=== PATIENT | female | born 1955 | race Caucasian/White ===

== ENCOUNTER 2023-06-07 20:28 | Inpatient (IN) | payer OTHER, SELFPAY ==
[2023-06-07] VITALS (14 sets, daily range): BP systolic 121–211; BP diastolic 106–136; PULSE 99; BMI 24.7
[2023-06-07 19:02] LABS: % Basophils 0.2 % (0-2); % Eosinophils 0.2 % (0-6); % Immature Granulocytes 1.1 % (0-0.5); % Monocytes 8.9 % (1.7-9.3); % Neutrophils 72.6 % (42.2-75.2); Absolute Immature Granulocytes 0.2 10^3/uL (0-0.05); Absolute Lymphocytes 2.7 10^3/uL (1.2-3.4); Absolute Monocytes 1.4 10^3/uL (0.1-0.6); Absolute Neutrophils 11.7 10^3/uL (1.4-6.5); Hemoglobin 13.2 g/dL (12.0-16.0); Mean Corp Hgb Conc. 33.8 g/dL (33.0-37.0); Mean Corpuscular Volume 88.6 fL (81.0-99.0); Nucleated Red Blood Cells % 0 %; Platelet Count 423 10^3/uL (130-400)
--- NOTE | 2023-06-07 19:24 | ED.GENMED ---
History of Present Illness
General
Chief Complaint: Chest Pain
Time Seen by Provider: 06/07/23 19:24
Travel History
Have you had any contact with someone who has COVID-19?: No
Do you have any symptoms of coronavirus? Fever > 100 degrees, chills, cough, shortness of breath, sore throat, loss of taste or smell, muscle aches, or headache?: No
History of Present Illness
History of Present Illness:
HPI: Patient presents with chest discomfort described as pressure on the left side of her chest ongoing for the past 15 hours. This feels unlike prior episodes of pancreatitis. She could sense her heart rate was elevated for the past 4 hours as
well. She states she has had an ablation for A-fib in the past.
EXAM:
GENERAL: Well appearing in mild distress
HEENT: Moist oral mucosa
CARDIOVASCULAR: No murmurs, tachycardic heart rate with regular rhythm, No chest wall tenderness
PULMONARY: No respiratory distress, breath sounds are slightly decreased
ABDOMEN: Soft with no peritoneal signs, no tenderness
NEUROLOGIC: Excellent strength all extremities, no coordination deficits
PSYCHIATRIC: Appropriate mental status, normal insight and judgement
EXTREMITIES: Nontender, no edema, moves all extremities equally
SKIN: No rash, no lesions
ED COURSE:
7:30 PM: I initially evaluated
NUMBER AND COMPLEXITY OF PROBLEMS ADDRESSED AT THE ENCOUNTER
� Chronic conditions affecting care: Paroxysmal A-fib on Eliquis, high blood pressure, hyperlipidemia, right bundle branch block, chronic diastolic heart failure has had hyponatremia, CKD, chronic pain syndrome with opioid
dependence as of September 2022, chronic pancreatitis
� Acute Exacerbation and/or Progression of Chronic Illness: This is an acute problem
� Differential Diagnosis includes: ACS, pancreatitis unlikely, chest wall pain
AMOUNT AND/OR COMPLEXITY OF DATA TO BE REVIEWED AND ANALYZED
� I performed an independent evaluation of and my interpretation is:
EKG: Sinus 130, right bundle branch block and it does appear to be more ST depression in V3 compared to prior, first-degree AV block
CT:
X-rays: Chest x-ray shows no definite acute abnormality
Laboratory Studies: White count 16, hemoglobin 13.2, troponin 0.083 which is new in comparison to 10/03/2022
Other:
� Review of other/old records: The patient was here with epigastric discomfort in September 2022 and ruled out for TX at that time
� Clinical information was obtained by an independent historian: I spoke to at bedside
� Prescriptions/Medications Considered but not given:
� Further testing considered but not performed:
RISK OF COMPLICATIONS AND/OR MORBIDITY OR MORTALITY OF PATIENT MANAGEMENT
� Social determinants of health affecting care: Lives at home
� Discussion with other providers: Hospitalist for admission; cardiology for recommendations (Dr. Echols who agrees with switching to heparin, nitro, rate reduction, admission)
� Escalation of care including admission/observation vs risk of discharge considered: The patient initially had heart rates in the 130s with suggestion of sinus but also may have been A-fib/flutter. She is already anticoagulated
and we decided to switch to heparin as she did have an elevated troponin. Her chest pressure has improved with nitroglycerin and this did help her blood pressure as well. She was given Lopressor.
Past History
Past History
ED Past Medical History: Arrthythmia (RBBB), COPD, HTN, Hypercholesterolemia, Hypothyroidism, Psychiatric (MDD), Other (Chronic kidney disease, anemia, Takotsubo's cardiomyopathy, chronic pancreatitis, chronic back pain) and Other (Vit D defic)
ED Past Surgical History: Appendectomy, Cardiac (SVT Ablation), Gynecological (Hysterectomy) and Other (lumbar surgery L5-S2; pelvic fx)
Social History
Tobacco: Former smoker
Alcohol: None
Drug: Other
Personal:
Living: with family
Employment: Not employed
Family History
Family History: Other (reviewed and non-contributory)
Phy Exam
Physical Exam
Physical Exam:
See HPI
Scores
Heart Score for Chest Pain Patients
STEMI patient?: Not applicable
Course
Orders/Labs/Results
Orders:
Orders
06/07/23 Dinner
Cholesterol Lowering
Cholesterol Lowering: Sodium, 2 Gram
06/07/23 18:40
Electrocardiogram (*1) Urgent
Reason for Study: Chest Pain
06/07/23 18:41
EKG- Treatment ONCE
06/07/23 18:54
Complete Blood Count/With Diff Urgent
Comprehensive Metabolic Panel Urgent
Magnesium Urgent
Comment: ADD ON
Troponin I Urgent
06/07/23 19:29
Add On- LAB Urgent
Tests Added?: magnesium
Potassium Chloride [KCl] 40 meq PO NOW STA
06/07/23 19:35
Aspirin 325 mg PO NOW STA
Metoprolol [Lopressor] 5 mg IV NOW STA
Nitroglycerin Sublingual [Nitrostat (Sublingual)] 0.4 mg SL NOW STA
06/07/23 19:36
CR Chest Portable - 1 View Urgent
Comment:
Reason For Exam: NSTEMI L CP
Reason Study Needs to be Portable: Patient Unstable
06/07/23 20:[address] Non Medication Order As Directed
Physician Order: PTT 6 hours after initial start of Heparin infusion
06/07/23 20:15
Admit/Transfer Patient As Directed
Co-Sign Provider:
Level of Care: Inpatient admission
Assign to:: IVU
Physician / Group: sherri
Diagnosis: hypertensive emergency, aflutter
Reason for Hospitalization: hypertensive emergency, aflutter
Expected length of stay greater than two midnights?: Yes
ELOS- Estimated Length of Stay in days: 2
I certify the patient meets the requirements for IP care: Yes
Code Status As Directed
Resuscitation Status: Do not resuscitate
Reached after discussion with pt or family/Healthcare POA: Yes
Heparin 18522 Units/250 ml 25,000 units in 250 ml IV PER PROTOCOL
Weight to be used for heparin protocol in kilograms (kg):: 61.235
Protocol:: Cardiac Tx/Acute Coronary
PTT Goal Range to be used:: PTT 73 to 111 seconds
Order type:: Initial
INITIAL Infusion Dose (UNITS/KG/hr) & then follow protocol:: 15 units/kg/hr
Infusion Dose in UNITS/hr & then follow protocol (UNITS/hr):: 900
INFUSION RATE in mL/hr & then follow protocol (mL/hr):: 9
PTT less than or equal to 64 seconds:: Increase rate by 200 units/hr (+ 2 mL/hr)
PTT 64.1 to 72.9 seconds:: Increase rate by 100 units/hr (+ 1 mL/hr)
PTT 73 to 111 seconds:: Target Range. No change in rate.
PTT 111.1 to 130.9 seconds:: Decrease rate by 100 units/hr (- 1 mL/hr)
PTT 131 to 199.9 seconds:: HOLD for 1 hr. Then decrease rate by 200 units/hr (- 2 mL/hr)
PTT greater than or equal to 200 seconds:: HOLD for 2 hrs & Notify Provider. Then decrease by 200 units/hr (-
2 mL/hr)
Lab follow-up:: Each change, PTT q6h until 2 consecutive are therapeutic. Then PTT
daily.
Nitroglycerin 100 mg/250 ml [Nitroglycerin Premix] 100 mg in 250 ml IV PER PROTOCOL
Initial dose in mcg/min, then titrate:: 5
Titrate to keep:: Chest Pain Free
Titrate by mcg/min:: 5 mcg/min, may increase by 10 mcg/min if dose > 20 mcg/min
Frequency of titrations (minutes):: every 3-5 minutes
Maximum dose in mcg/min:: 200
Begin to taper infusion when:: Remained at goal for 2hrs
Taper by mcg/min:: 5 mcg/min
Frequency of taper (minutes) if patient maintains goal:: 30
Taper to off?: Yes
If infusion off & no longer maintaining goal:: Contact Provider
DNR Bracelet Application ONCE
06/07/23 20:23
Ondansetron Injectable [Zofran] 4 mg .ROUTE .STK-MED ONE
06/07/23 20:26
CARDIOLOGY CONSULT Routine
Consulting Provider: Hemant Godoy
Was physician already notified: Yes
06/07/23 20:30
PTT Urgent
Comment: Obtain baseline before beginning heparin infusion if not already collected
06/07/23 21:32
Troponin I Q6H
Oxycodone/Acetaminophen [Percocet 5/325] 1 tablet PO Q4HPRN PRN
Tizanidine [Zanaflex] 4 mg PO TID PRN
06/07/23 21:32
VTE Contraindication Routine
VTE Mechanical Device Contraindication: Medical Contraindication
Pharmocologic Contraindication: Medical Contraindication
Hemoglobin A1c [Glycohemoglobin (HgbA1c)] Routine
Heparin Protocol- PTT Orders As Directed
PTT per Heparin protocol: -Obtain CBC and baseline PTT - if not already collected.
-Obtain PTT 6 hours from start of infusion. Then, every 6 hours until 2 consecutive
PTT's are therapeutic. Then, PTT Daily.
-With each rate change, obtain PTT every 6 hours until 2 consecutive PTT's are
therapeutic. Then, PTT Daily.
Activity As Directed
Activity Level: As Tolerated
Notify MD As Directed
Notify physician if: PTT is greater than or equal to 200.
Vital Signs As Directed
Frequency: Per unit guidelines
06/07/23 22:00
Mirtazapine [Remeron] 30 mg PO HS
06/08/23 03:32
Troponin I Q6H
06/08/23 06:00
Complete Blood Count/With Diff IN AM
Comprehensive Metabolic Panel IN AM
06/08/23 08:00
Amiodarone [Pacerone] 200 mg PO DAILY
Amlodipine [Norvasc] 5 mg PO DAILY
Cholecalciferol (Vitamin D3) [VITAMIN D3 (cholecalciferol)] 25 mcg PO BID
Cyanocobalamin [Vitamin B-12] 1,000 mcg PO DAILY
Duloxetine Delayed Release [Cymbalta Delayed Release] 30 mg PO DAILY
Ferrous Sulfate [Feosol] 325 mg PO DAILY
Furosemide [Lasix] 20 mg PO DAILY
Levothyroxine [Synthroid] 25 mcg PO DAILY
Lurasidone HCl [Latuda] 20 mg PO DAILY
Metoprolol Xl [Toprol Xl] 12.5 mg PO BID
zuehpz-hjfkwwcl-zcrezim [Creon] 2 cap PO MEALS
magnesium oxide 250 mg PO DAILY
06/08/23 09:32
Troponin I Q6H
06/08/23 15:32
Troponin I Q6H
06/08/23 18:00
simvastatin 20 mg PO QPM
06/09/23 06:00
Complete Blood Count/No Diff Q2D
Comment: notify provider: Platelet count < 130,000 or decrease by 50% from baseline
06/11/23 06:00
Complete Blood Count/No Diff Q2D
Comment: notify provider: Platelet count < 130,000 or decrease by 50% from baseline
06/13/23 06:00
Complete Blood Count/No Diff Q2D
Comment: notify provider: Platelet count < 130,000 or decrease by 50% from baseline
06/15/23 06:00
Complete Blood Count/No Diff Q2D
Comment: notify provider: Platelet count < 130,000 or decrease by 50% from baseline
06/17/23 06:00
Complete Blood Count/No Diff Q2D
Comment: notify provider: Platelet count < 130,000 or decrease by 50% from baseline
06/19/23 06:00
Complete Blood Count/No Diff Q2D
Comment: notify provider: Platelet count < 130,000 or decrease by 50% from baseline
06/21/23 06:00
Complete Blood Count/No Diff Q2D
Comment: notify provider: Platelet count < 130,000 or decrease by 50% from baseline
06/23/23 06:00
Complete Blood Count/No Diff Q2D
Comment: notify provider: Platelet count < 130,000 or decrease by 50% from baseline
Abnormal Lab Results
06/07/23
18:54
WBC 16.0 H 10^3/uL
(4.8-10.8)
Plt Count 423 H 10^3/uL
(130-400)
Abs Immat Gran (auto) 0.2 H 10^3/uL
(0-0.05)
Absolute Neuts (auto) 11.7 H 10^3/uL
(1.4-6.5)
Absolute Monos (auto) 1.4 H 10^3/uL
(0.1-0.6)
Immature Gran % 1.1 H %
(0-0.5)
Lymphocytes % 17.0 L %
(20.5-51.1)
Potassium 3.0 L mmol/L
(3.5-5.1)
Chloride 96 L mmol/L
(98-107)
BUN 19 H mg/dl
(7-17)
Glucose 264 H mg/dl
(70-99)
Calcium 10.6 H mg/dl
(8.4-10.2)
Troponin I 0.083 H* ng/ml
06/07/23 18:54
06/07/23 18:54
Vital Signs
Initial and Last Documented VS:
Initial Vital Signs
Temp Pulse Resp BP Pulse Ox
98.0 F 139 20 211/135 98
06/07/23 18:44 06/07/23 18:44 06/07/23 18:44 06/07/23 18:44 06/07/23 18:44
Last Documented Vital Signs
Temp Pulse Resp BP Pulse Ox
97.9 F 102 20 180/133 98
06/07/23 21:34 06/07/23 20:50 06/07/23 21:34 06/07/23 20:50 06/07/23 21:34
*Critical Care Note
Total Time (30-74mins, 75-104mins- exclusive of procedures): 45 minutes
comment:
The patient was markedly tachycardic and markedly hypertensive upon arrival. She was emergently given nitroglycerin, heparin, Lopressor, and vital signs were very closely monitored. Her chest pain was also reassessed and had been improving on
nitroglycerin. I had several discussions with cardiology as well.
ED Attending Note
-
Portions of this chart may have been created with voice recognition software.� Occasional wrong word or��sound alike� substitutions may have occurred due to the inherent limitations of voice recognition software.
Discharge Plan
Departure
Patient Disposition: Admit
Date of Disposition: 06/07/23
Time of Disposition: 19:45
Presentation/result/management discussed w/ accepting MD/DO: Hospitalist
Discharge Problem:
Acute coronary syndrome with high troponin
Interventions
Interventions:
*Risk Screen - Suicide Last Done: 06/07/23 18:44
*General Assessment Last Done: 06/07/23 18:44
*Neglect/Abuse Screening Last Done: 06/07/23 18:44
*ED COVID-19 Vaccine History Last Done: 06/07/23 18:44
*Nursing Disposition Last Done: 06/07/23 21:35
ED- Cardiac Assessment Last Done: 06/07/23 21:00
[2023-06-07 19:26] LABS: Troponin I 0.083 ng/ml
[2023-06-07 19:27] LABS: ALT (SGPT) 16 U/L (0-35); AST (SGOT) 24 U/L (14-36); Albumin 4.6 g/dl (3.5-5.0); Alkaline Phosphatase 126 U/L (38-126); Blood Urea Nitrogen 19 mg/dl (7-17); Calcium 10.6 mg/dl (8.4-10.2); Carbon Dioxide 27 mmol/L (22-30); Chloride 96 mmol/L (98-107); Glucose 264 mg/dl (70-99); Sodium 139 mmol/L (135-145); Total Bilirubin 0.5 mg/dl (0.2-1.3); Total Protein 7.8 g/dl (6.3-8.2); eGFR > 60.00
[2023-06-07] MEDS: NITROSTAT (SUBLINGUAL) 0.400000000000000022 MG SL (20:19)
[2023-06-07] MEDS: LOPRESSOR 5 MG IV ×2 (20:20→23:05)
[2023-06-07] MEDS: ASPIRIN 325 MG PO (20:21)
--- NOTE | 2023-06-07 20:24 | HPS.HSE ---
Family Physician
-
Family Physician: Glenn Alfaro
Chief Complaint
-
chest pain
History of Present Illness
68-year-old female past medical history of HFpEF, paroxysmal atrial fibrillation status post PVI/ablation, hypertension, hyperlipidemia, CKD 3, hypothyroidism, chronic pancreatitis, chronic pain syndrome, anemia of chronic disease, presenting with
left-sided chest tightness for the past 15 hours. Her heart rate was also elevated for 4 hours. She denies any shortness of breath or dizziness. She did have 2 episodes of vomiting. She denies any abdominal pain.
Her lambskin trimmer is Dr. Snow who she recently saw. She denies any changes to her cardiac medications recently.
Medical History
Past Medical History
Past Medical History: Reports Other (HFpEF, paroxysmal atrial fibrillation status post PVI/ablation, hypertension, hyperlipidemia, CKD 3, hypothyroidism, chronic pancreatitis, chronic pain syndrome, anemia of chronic disease)
Past Surgical History: Reports Other ( Appendectomy, Cardiac (SVT Ablation), Gynecological (Hysterectomy) and Other (lumbar surgery L5-S2; pelvic fx))
Social History
Tobacco: Non-smoker
Alcohol: None
Drug: None
Family History
Family History: Not pertinent
Allergies / Home Medications
Allergies reflects when Allergies were last updated in [facility].
Home Medications with original date entered in [facility]
Allergy/Medication List:
Allergies
Allergy/AdvReac Type Severity Reaction Status Date / Time
No Known Allergies Allergy Verified 09/10/22 08:35
Home Medications
levothyroxine 25 mcg tablet 25 mcg PO DAILY Thyroid 11/18/21
lurasidone 20 mg tablet (Latuda) 20 mg PO DAILY mental health 11/18/21
simvastatin 20 mg tablet 20 mg PO QPM High cholesterol 11/18/21
tizanidine 4 mg tablet 4 mg PO TID PRN muscle spasms 11/18/21
cyanocobalamin (vitamin B-12) 1,000 mcg tablet 1,000 mcg PO DAILY Supplement 02/20/22
mirtazapine 30 mg tablet 30 mg PO HS Mental Health/Anxiety 02/20/22
bhxdtn-jenxswqz-phcgeal 24,000-76,000-120,000 unit capsule,delayed rel (Creon) 2 cap PO MEALS 06/11/22
oxycodone-acetaminophen 5 mg-325 mg tablet 1 tab PO Q4HPRN PRN severe pain 06/11/22
amiodarone 200 mg tablet (Pacerone) 200 mg PO DAILY 07/29/22
amlodipine 5 mg tablet 5 mg PO DAILY 08/24/22
apixaban 5 mg tablet (Eliquis) 5 mg PO BID 08/24/22
cholecalciferol (vitamin D3) 25 mcg (1,000 unit) tablet (Vitamin D3) 25 mcg PO BID 09/10/22
magnesium oxide 250 mg PO DAILY 09/10/22
duloxetine 30 mg capsule,delayed release 30 mg PO DAILY 10/02/22
ferrous sulfate 325 mg (65 mg iron) tablet (iron) 325 mg PO DAILY 06/07/23
furosemide 20 mg tablet 20 mg PO DAILY 06/07/23
metoprolol succinate 25 mg tablet,extended release 24 hr 12.5 mg PO BID 06/07/23
Review of Systems
-
History Source: Patient
A 12 point ROS was completed and negative except as noted: Yes
Constitutional: Reports No Symptoms
EENT: Reports No Symptoms
Respiratory: Reports No Symptoms
Cardiac: Reports See HPI
Abdomen/GI: Reports No Symptoms
: Reports No Symptoms
Musculoskeletal: Reports No Symptoms
Skin: Reports No Symptoms
Neurological: Reports No Symptoms
Endocrine: Reports No Symptoms
Hematologic/Lymphatic: Reports No Symptoms
Psych: Reports No Symptoms
Physical Exam
Vital Signs
Vital Signs
Temp Pulse Resp BP Pulse Ox
98.0 F 139 20 211/135 98
06/07/23 18:44 06/07/23 18:44 06/07/23 18:44 06/07/23 18:44 06/07/23 18:44
Physical Exam
General: Well Developed, Well Nourished and No Apparent Distress
HEENT: NormoCephalic, Moist mucous membranes and Atraumatic
Respiratory: Clear
Cardiac: S1/S2 and Regular Rhythm; No Murmur or Rub
GI: Soft, Non Tender, Non Distended and Normal Bowel Sounds; No Organomegaly
Rectal: Deferred by Provider
Musculoskeletal: No Clubbing, No Cyanosis and No Edema
Skin: No Rash
Neuro: Nonfocal/grossly intact
Laboratory Results
-
06/07/23 18:54
06/07/23 18:54
Laboratory Results
Total Bilirubin 0.5 mg/dl (0.2-1.3) 06/07/23 18:54
AST 24 U/L (14-36) 06/07/23 18:54
ALT 16 U/L (0-35) 06/07/23 18:54
Alkaline Phosphatase 126 U/L (38-126) 06/07/23 18:54
Troponin I 0.083 ng/ml H* 06/07/23 18:54
Data Reviewed
-
Lab Data: Labs Reviewed by me
Old Records: Reviewed
Impression/Plan
-
IMPRESSION:
PLAN:
#Hypertensive urgency/emergency
# A-flutter/SVT with RVR
# NSTEMI versus non-VT troponin elevation secondary to tachycardia
-EKG interpreted as sinus tachycardia with heart rate of 130
-Probably atrial flutter, and ST depressions noted
-Trend troponins
-Cardiology recommended switching Eliquis to heparin drip, repetition of IV metoprolol for elevated heart rate and nitroglycerin drip to help with blood pressure and chest pain
-Consider Cardizem if no improvement in heart rate and response to IV metoprolol
-Continue p.o. metoprolol
-Continue amlodipine
#Hypokalemia secondary to vomiting
-Potassium repletion
# Hyperglycemia
-Check hemoglobin A1c
Paroxysmal atrial fibrillation status post PVI/ablation
-Continue amiodarone
-Eliquis changed to heparin drip
Chronic HFpEF
-Continue Lasix
Hyperlipidemia
-Continue simvastatin
CKD 3A
-Renal function at baseline
Hypothyroidism
-Continue levothyroxine
Chronic pancreatitis
-Continue Creon
Chronic pain syndrome/anxiety/depression
-Continue duloxetine
-Continue Latuda, mirtazapine
-Continue Percocet
Anemia of chronic disease
-Hemoglobin stable
DNR/DNI
DVT prophylaxis�heparin drip
Cardiac diet
[2023-06-07 20:30] LABS: Magnesium 1.8 mg/dl (1.6-2.3)
[2023-06-07] MEDS: ZOFRAN 4 MG IV (20:36)
[2023-06-07] MEDS: KCL 40 MEQ PO (20:37)
[2023-06-07] MEDS: NITROGLYCERIN PREMIX 250 IV (20:42)
[2023-06-07 20:46] LABS: APTT 25.6 Sec (23.4-35.0)
[2023-06-07] MEDS: HEPARIN 25000 UNITS/250 ML IV (20:56)
[2023-06-07] MEDS: PERCOCET 5/325 1 TABLET PO (21:51)
[2023-06-07] MEDS: REMERON 30 MG PO (21:52)
[2023-06-07 23:06] LABS: Glucose - Point of Care 220 mg/dl (70-99)
[2023-06-07] MEDS: FLUSH (NSS) 2 FLUSH IV (23:06)
[2023-06-08] VITALS (24 sets, daily range): BP systolic 119–175; BP diastolic 84–129; BMI 24.7
--- NOTE | 2023-06-08 02:19 | PTCARENOTE ---
Late note:Received from the ED at 4. Monitor showing a-fib in the 130's-140's. Remains hypertensive. Patient stated she felt 'jittery'. Lopressor iv given at 2305 for rapid HR. HR increases with activity. Heparin infusing at 900 units/hr. NTG
infusing at 40 mcg/min. Medicated with percocet x2 for back pain and some 'heartburn'.
[2023-06-08] MEDS: PERCOCET 5/325 1 TABLET PO ×5 (02:27→20:31)
[2023-06-08] MEDS: COMPAZINE 5 MG IV ×3 (03:08→20:29)
[2023-06-08] MEDS: FLUSH (NSS) 3 FLUSH IV (03:10)
[2023-06-08] MEDS: LOPRESSOR 5 MG IV (03:10)
[2023-06-08 03:15] LABS: % Basophils 0.2 % (0-2); % Eosinophils 0.1 % (0-6); % Lymphocytes 10.5 % (20.5-51.1); % Monocytes 10.3 % (1.7-9.3); % Neutrophils 77.9 % (42.2-75.2); Absolute Immature Granulocytes 0.2 10^3/uL (0-0.05); Absolute Lymphocytes 1.8 10^3/uL (1.2-3.4); Absolute Monocytes 1.8 10^3/uL (0.1-0.6); Absolute Neutrophils 13.5 10^3/uL (1.4-6.5); Hematocrit 39.8 % (37.0-47.0); Hemoglobin 13.4 g/dL (12.0-16.0); Mean Corp Hgb Conc. 33.7 g/dL (33.0-37.0); Mean Corpuscular Hgb 30.2 pg (27.0-31.0); Mean Corpuscular Volume 89.8 fL (81.0-99.0); Mean Platelet Volume 10.5 fL (7.4-10.4); Nucleated Red Blood Cells % 0 %; Platelet Count 415 10^3/uL (130-400); Red Blood Cell Count 4.43 10^6/uL (4.20-5.40); Red Cell Dist. Width 12.8 % (11.5-14.5); White Blood Cell Count 17.3 10^3/uL (4.8-10.8)
[2023-06-08 03:18] LABS: ALT (SGPT) 15 U/L (0-35); AST (SGOT) 22 U/L (14-36); Albumin 4.4 g/dl (3.5-5.0); Alkaline Phosphatase 139 U/L (38-126); Blood Urea Nitrogen 16 mg/dl (7-17); Calcium 10.5 mg/dl (8.4-10.2); Carbon Dioxide 30 mmol/L (22-30); Chloride 94 mmol/L (98-107); Estimated Creatinine Clearance 52 ml/min; Glucose 206 mg/dl (70-99); Potassium 2.8 mmol/L (3.5-5.1); Sodium 139 mmol/L (135-145); Total Bilirubin 0.6 mg/dl (0.2-1.3); Total Protein 7.6 g/dl (6.3-8.2); eGFR > 60.00
[2023-06-08 03:23] LABS: Troponin I 0.086 ng/ml
--- NOTE | 2023-06-08 05:04 | PTCARENOTE ---
Continues to complain of chest discomfort. Increasing NTG drip, running at 60mcg/min at present. Sheri saavedra made aware of potassium level of 2.8 this am, awaiting isauro boyle to administer.
[2023-06-08] MEDS: KCL 270 MEQ IV (05:45)
[2023-06-08] MEDS: FLUSH (NSS) 1 FLUSH IV ×2 (05:45→13:23)
[2023-06-08] MEDS: CORDARONE 518 MG IV (06:29)
[2023-06-08] MEDS: SYNTHROID 25 MCG PO (06:30)
[2023-06-08] MEDS: TOPROL XL 12.5 MG PO (08:51)
[2023-06-08] MEDS: LASIX 20 MG PO (08:51)
[2023-06-08] MEDS: NORVASC 5 MG PO (08:51)
[2023-06-08] MEDS: VITAMIN D3 (cholecalciferol) 25 MCG PO ×2 (08:52→19:41)
[2023-06-08] MEDS: VITAMIN B-12 1000 MCG PO (08:52)
[2023-06-08] MEDS: MAGNESIUM OXIDE 250 MG PO (08:52)
[2023-06-08] MEDS: ZENPEP DELAYED RELEASE CAPSULE 2 CAPSULE PO ×3 (08:53→16:57)
[2023-06-08] MEDS: LATUDA 20 MG PO (08:53)
[2023-06-08] MEDS: CYMBALTA DELAYED RELEASE 30 MG PO (08:53)
[2023-06-08] MEDS: FEOSOL 325 MG PO (08:53)
--- NOTE | 2023-06-08 09:02 | W.PN.HOSP.TC ---
Today's Communication/Plan
-
TTE pending
recheck K/mg level
f/u T curve/wbc
Assessment / Plan
Assessment / Plan
# Aflutter with RVR
- was on Cardizem drip
- started on oral amiodarone
- eventual EP cardio eval outpatient basis
# Chest pain
Troponin elevation
-admission EKG reviewed
-Trop trend ordered
-Eliquis held, on heparin drip
-Nitro drip to be weaned off
-Echocardiogram ordered
# Hypertensive urgency
-started on nitro drip/Cardizem drip for chest pain/afib
-started Toprol-XL and amlodipine
#Hypokalemia secondary to vomiting
-Potassium repletion
-recheck 1
# Hyperglycemia
-Hemoglobin A1c of 6.
#Paroxysmal atrial fibrillation status post PVI/ablation
-Continue amiodarone
-Eliquis changed to heparin drip
#Chronic HFpEF
-Continue Lasix
#Hyperlipidemia
-Continue simvastatin
#CKD 3A
-Renal function at baseline
#Hypothyroidism
-Continue levothyroxine
#Chronic pancreatitis
-Continue Creon
#Chronic pain syndrome/anxiety/depression
-Continue duloxetine
-Continue Latuda, mirtazapine
-Continue Percocet
#Anemia of chronic disease
-Hemoglobin stable
DNR/DNI
DVT prophylaxis�heparin drip
Anticipated Discharge: 24 - 48 hours
Subjective/Interval History
-
Date of Service: June 08, 2023
continues to have chest discomfort
no abd pain/nausea/vomiting
Objective Data
-
Labs:
Laboratory Results
06/08/23 06/08/23
02:41 09:45
WBC 17.3 H
Hgb 13.4
Hct 39.8
Plt Count 415 H
APTT 40.0 H Pending
Sodium 139
Potassium 2.8 L
Chloride 94 L
Carbon Dioxide 30
BUN 16
Creatinine 0.8
Glucose 206 H
Calcium 10.5 H
Total Bilirubin 0.6
AST 22
ALT 15
Alkaline Phosphatase 139 H
Vital Signs:
Vital Signs
Temp Pulse Resp BP Pulse Ox
97.3 F 136 20 133/104 100
06/08/23 07:37 06/08/23 08:51 06/08/23 07:37 06/08/23 08:51 06/08/23 07:37
I&O
06/07/23 06/08/23 06/09/23
06:59 06:59 06:59
Output Total 800 / 800
Balance -800 / -800
Review of Systems
-
Respiratory: Denies Trouble Breathing or Wheezing
Cardiac: Reports Chest Pain and Diaphoresis; Denies Palpitations
Abdomen/GI: Reports No Symptoms
Physical Exam
-
General: Comfortable; Negative Respiratory Distress
HEENT: Negative Oxygen
Respiratory: Clear to Auscultation
Cardiac: S1/S2, Irregular Rhythm and Tachycardic; Negative Murmur
GI: Soft, Nondistended and Normal Bowel Sounds
Skin: Dry
Neuro: Awake, Alert, Oriented and Nonfocal/Grossly Intact
Psych: Calm and Intact Judgement/Insight
--- NOTE | 2023-06-08 09:07 | CON.CAR ---
Addendum entered and electronically signed by Sarahy Garcia PA-C 06/08/23 12:09:
d/w hospitalist and updated on plan.
Addendum entered and electronically signed by Alejandro Guerrero DO 06/08/23 11:33:
I saw and examined the patient.
The Structural Shop Helper's note was reviewed and I agree with the note.
Comment:
Plan:
Her chest pain has atypical and typical features
Cont IV Heparin and hold Eliquis.
Wean off IV nitro
Check echo
If EF reduced, will schedule for left heart cath.
If she becomes pain free and EF preserved, will consider stress test tomorrow. If she continues with chest pain will consider cath tomorrow.
Add ASA and check lipids
For atrial tachycardia, transition Amiodarone to 200 mg TID
Eventual outpt EP reeval for possible ablation of atypical atrial tachycardia.
Reviewed with nursing.
Admit info: Presents with feeling poorly starting around 4 AM.� She reports elevated blood pressure, elevated heart rate, chest tightness, diaphoresis and dizziness.
-Chest x-ray 06/07/2023 without evidence of effusion or pulmonary edema
-Troponins elevated at 0.083, 0.086.� She states she remains with tightness/discomfort.
Original Note:
Consultation
Consultation Request
Date/Time Consultation Performed: 06/08/23
Performing Provider: Sarahy Garcia PA-C for Dr. Guerrero
Reason for Consultation: HTN, elevated HR, elevated troponin
Medical History
-
Chief Complaint: didn't feel right
History of Present Illness:
Patient is a 68-year-old female with past medical history of chronic pancreatitis, Takotsubo cardiomyopathy, SVT ablation in 1991, with more recent PVI for persistent atrial fibrillation/flutter 08/2022 who presented to [facility] due to
complaints of not feeling right starting at 4 AM. She states when she awoke at 4 AM her blood pressure was elevated and she had chest tightness. She took 'a blood pressure pill' which did not improve her symptoms. She took the rest of her AM meds
at 7AM. She reports symptoms are different from the discomfort she feels in the setting of pancreatitis (had unsuccessful ERCP in 11/2022, last pancreatitis episode 04/2023). She states symptoms have been constant since 4AM today. She also felt her
heart rate to be elevated/racing. When she was seen in cardiology office 05/14/2023, she reported several brief episodes of symptomatic tachycardia, and was restarted on amiodarone 200 mg daily for this. At time of her ablation 08/2022, she was noted
to have additional tachycardia which was mapped but not ablated due to venous tortuosity. Denies SOB, LE edema. Admits to intermittent lightheadedness, diaphoresis. Last ischemic evaluation appears to be a cath in 2015 with nonobstructive CAD.
During 09/2022 admission for CP, trops were serially negative, now elevated at 0.083. BP on arrival was 211/135. Currently on IV amiodarone, IV heparin, and IV nitro.
PMH:
Persistent AF/Aflutter s/p post PVI 09/10/22
Chronic RBBB
History of remote SVT ablation 1991
Severe biatrial enlargement
Hyperlipidemia
Hypothyroidism
Chronic HFpEF
CKD3a
Anemia
History of takotsubo cardiomyopathy 2015
chronic pancreatitis
chronic back pain
Past Medical History
Past Medical History: Other (in HPI)
Social History
Tobacco: Former Smoker
Living: With Family
Employment: Retired
Family History
Family History: CAD
Allergies / Home Medications
Allergy/AdvReac Type Severity Reaction Status Date / Time
No Known Allergies Allergy Verified 09/10/22 08:35
Medication Instructions Recorded Confirmed Type
levothyroxine 25 mcg tablet 25 mcg PO DAILY Thyroid 11/18/21 06/07/23 History
lurasidone 20 mg tablet (Latuda) 20 mg PO DAILY mental health 11/18/21 06/07/23 History
simvastatin 20 mg tablet 20 mg PO QPM High cholesterol 11/18/21 06/07/23 History
tizanidine 4 mg tablet 4 mg PO TID PRN muscle spasms 11/18/21 06/07/23 History
cyanocobalamin (vitamin B-12) 1,000 mcg PO DAILY Supplement 02/20/22 06/07/23 History
1,000 mcg tablet
mirtazapine 30 mg tablet 30 mg PO HS Mental Health/Anxiety 02/20/22 06/07/23 History
tlfajr-dpnctkqg-cfimnmv 2 cap PO MEALS Supplement 06/11/22 06/07/23 History
24,000-76,000-120,000 unit
capsule,delayed rel (Creon)
oxycodone-acetaminophen 5 mg-325 1 tab PO Q4HPRN PRN severe pain 06/11/22 06/07/23 History
mg tablet
amiodarone 200 mg tablet (Pacerone) 200 mg PO DAILY Heart 07/29/22 06/07/23 History
Disease/Condition
amlodipine 5 mg tablet 5 mg PO DAILY Blood Pressure 08/24/22 06/07/23 History
apixaban 5 mg tablet (Eliquis) 5 mg PO BID Blood Clot 08/24/22 06/07/23 History
Prevention/Tx
cholecalciferol (vitamin D3) 25 25 mcg PO BID Supplement 09/10/22 06/07/23 History
mcg (1,000 unit) tablet (Vitamin
D3)
magnesium oxide 250 mg PO DAILY Supplement 09/10/22 06/07/23 History
duloxetine 30 mg capsule,delayed 30 mg PO DAILY Pain 10/02/22 06/07/23 History
release
ferrous sulfate 325 mg (65 mg 325 mg PO DAILY Supplement 06/07/23 06/07/23 History
iron) tablet (iron)
furosemide 20 mg tablet 20 mg PO DAILY Fluid 06/07/23 06/07/23 History
Retention/Swelling
metoprolol succinate 25 mg 12.5 mg PO BID Blood Pressure 06/07/23 06/07/23 History
tablet,extended release 24 hr
Review of Systems
-
History Source: Patient
All other systems: Negative unless noted
Physical Exam
Vital Signs
Temp Pulse Resp BP Pulse Ox
97.3 F 136 20 133/104 100
06/08/23 07:37 06/08/23 08:51 06/08/23 07:37 06/08/23 08:51 06/08/23 07:37
Lab Results
06/08/23 02:41
06/08/23 02:41
Troponin I 0.086 ng/ml H* 06/08/23 02:41
Physical Exam
General: No Apparent Distress and Other (flat affect)
HEENT: Normocephalic, Anicteric and Moist Mucous Membranes
Respiratory: Clear and Non Labored Respirations
Cardiac: S1/S2, Irregular Rhythm and Other (tachycardic)
GI: Soft, Non Tender, Non Distended and Normal Bowel Sounds
Musculoskeletal: No Clubbing, No Cyanosis and Edema (trace of B/L LE)
Skin: Warm and Dry
Neuro: AO x 3
Impression / Plan
-
Primary Reception Clerk: Dr. JORDY Snow
Assessment:
HTN urgency
Atrial tachycardia vs atrial fibrillation with RVR
CP
Elevated troponin
Hypokalemia
Leukocytosis
Persistent AF/Aflutter s/p post PVI 09/10/22
Chronic OAC with eliquis
Chronic RBBB
History of remote SVT ablation 1991
Severe biatrial enlargement
Chronic HFpEF
Hyperlipidemia
Hypothyroidism
CKD3a
Anemia
History of takotsubo cardiomyopathy 2015
chronic pancreatitis
chronic back pain
ECHO 10/05/2022: EF 60 to 65%, MAC, mild MR, aortic sclerosis, normal right heart with mild pulmonary hypertension, PAP 40 to 45 mmHg, small atrial septal defect status post PVI
Cardiac catheterization 2016: Nonobstructive coronary artery disease
Plan:
-Patient presents with feeling poorly starting around 4 AM. She reports elevated blood pressure, elevated heart rate, chest tightness, diaphoresis and dizziness.
-Chest x-ray 06/07/2023 without evidence of effusion or pulmonary edema
-Troponins elevated at 0.083, 0.086. She states she remains with tightness/discomfort.
-EKG on arrival sinus tachycardia with first-degree AV block, chronic right bundle branch block, and ST depression more pronounced in the anterior leads compared to prior. repeat EKG with HR in 140s.
-Trend troponins to peak
-Currently on IV nitro at 60. Attempt to wean as able
-Consider transition from IV amio to po amio load 200mg TID (was on po amio 200mg daily as OP). LFTs okay. Mild elevation of ALP. Currently heart rates remain elevated on review of telemetry. Currently on outpatient Toprol 12.5 mg twice daily,
consider increasing dose with elevated BP and HR.
-As outpatient is on anticoagulation with Eliquis. Presently on hold and on IV heparin.
-Check echocardiogram
-Consider for Lexiscan MIBI stress test versus cath in a.m. pending troponin trends/symptoms/echo results. Last ischemic evaluation was in 2015 with nonobstructive coronary disease
-During ablation 08/2022 patient was noted to have additional tachycardia which was mapped but not ablated due to venous tortuosity. Patient may need repeat EP study at some point
-Replete potassium, 2.8 on 06/08. Magnesium also being repleted
-add asa 81mg daily for now. check CVE in AM
-d/w nursing
Data Reviewed
-
EKG: Tracing Personally Visualized and interpreted
Radiology: Report Reviewed by me
Medical Tests (Nuc Med, Echo etc): Report Reviewed by me
Labs: Labs Reviewed by me
Old Records: Reviewed
[2023-06-08] MEDS: MAGNESIUM SULFATE 100 IV (09:55)
--- NOTE | 2023-06-08 10:00 | PTCARENOTE ---
received patient this am, IV nitroglycerin @ 60mcg or 9ml/hr, and IV heparin @ 1100 units/hr via right hand. Potassium @ in right ant. as ordered, followed by magnesium as ordered. IV amiodarone @ 33.3 cc/hr via left forearm without difficulties. HR
remains in the 140's, monitor showing Aflutter, BP remains elevated 142/110. Sarahy CORBIN in room talking with patient.
--- NOTE | 2023-06-08 11:02 | CM ---
spoke to pt in room, she is prev indep, lives with her husb in a 2 story home with no steps to enter. she denies any dc planning needs. she has a cane and a walker at home to use is needed. plan is for dc to home when medically stable.
[2023-06-08] MEDS: LOW STRENGTH ASPIRIN 81 MG PO (11:29)
[2023-06-08] MEDS: PACERONE 200 MG PO ×3 (11:29→22:27)
[2023-06-08 12:24] LABS: APTT 70.3 Sec (23.4-35.0)
[2023-06-08 12:28] LABS: Troponin I 0.075 ng/ml
--- NOTE | 2023-06-08 12:59 | PTCARENOTE ---
weaning IV nitroglycerin as per order, Sarahy Garcia MOTOR ROOM CONTROLLER. IV amiodarone D/C'd as ordered and started on po amiodarone. IV heparin adjusted infusion as per PTT. patient c/o chronic lower back pain and Percocet po given with relief. patient has not
eaten today, not hungry.
--- NOTE | 2023-06-08 13:27 | PTCARENOTE ---
patient c/o nausea, Compazine given as ordered. INT in left forearm D/C'd as per protocol after IV amiodarone infusion. continue to wean IV Nitroglycerin, patient stated, 'pressure is better'.
[2023-06-08 15:00] LABS: Troponin I 0.074 ng/ml
[2023-06-08] MEDS: CARDIZEM 125 IV (16:06)
[2023-06-08] MEDS: LIPITOR 10 MG PO (16:59)
--- NOTE | 2023-06-08 17:26 | PTCARENOTE ---
IV nitroglycerin weaned off, patient verbalizes no c/o CP. IV heparin @ 1200units /hr and IV cardizem @ 10cc/hr. HR 130, BP 137/112. patient does not want to eat, encouraged patient to eat and offered emotional support.
[2023-06-08] MEDS: HEPARIN 25000 UNITS/250 ML IV (19:21)
[2023-06-08] MEDS: TOPROL XL 25 MG PO (19:41)
[2023-06-08 20:25] LABS: APTT 119.5 Sec (23.4-35.0)
--- NOTE | 2023-06-08 21:07 | PTCARENOTE ---
Received pt at handoff. AOX3. Assessment noted as documented. Tele- Afib. HR 90-100s. Cardizem infusing at 15ml/hr. Heparin infusing at 1100units/hr. BP 149/100. Pt c/o chronic back pain 01/26 and nausea. Pt given Percocet and Compazine as ordered.
See MAR. Pt states relief. Pt to bedside commode. Currently in bed; call vinicius w/in reach.
[2023-06-08] MEDS: REMERON 30 MG PO (22:27)
[2023-06-09] VITALS (15 sets, daily range): BP systolic 106–160; BP diastolic 71–110; BMI 24.2
[2023-06-09] MEDS: CARDIZEM 125 IV ×2 (00:17→08:32)
[2023-06-09] MEDS: PERCOCET 5/325 1 TABLET PO ×5 (00:32→23:10)
[2023-06-09] MEDS: COMPAZINE 5 MG IV (02:51)
[2023-06-09 04:17] LABS: Hematocrit 38.8 % (37.0-47.0); Hemoglobin 12.9 g/dL (12.0-16.0); Mean Corp Hgb Conc. 33.2 g/dL (33.0-37.0); Mean Corpuscular Volume 90.2 fL (81.0-99.0); Mean Platelet Volume 10.7 fL (7.4-10.4); Platelet Count 353 10^3/uL (130-400); Red Cell Dist. Width 13.2 % (11.5-14.5)
[2023-06-09 04:18] LABS: APTT 96.6 Sec (23.4-35.0)
--- NOTE | 2023-06-09 04:25 | DOWNTIME ---
There was a [employer] Client Paper Sorter And Counter Downtime on 06/09/2023 from 0111 to 06/09/2023 at 0405. Downtime documentation of patient's care, including medication administrations, has been reconciled in the electronic record per guidelines. Refer to the
patient's paper chart under the miscellaneous tab to see printed paper medication records and downtime forms.
[2023-06-09 04:30] LABS: Blood Urea Nitrogen 12 mg/dl (7-17); Carbon Dioxide 27 mmol/L (22-30); Chloride 94 mmol/L (98-107); Estimated Creatinine Clearance 47 ml/min; Glucose 136 mg/dl (70-99); HDL Cholesterol 141 mg/dl; LDL Cholesterol, Calculated 64 mg/dl; Potassium 3.6 mmol/L (3.5-5.1); Sodium 132 mmol/L (135-145); Total Cholesterol 227 mg/dl (50-199); Triglyceride 110 mg/dl (10-149); Very Low Density Lipoprotein 22 mg/dl (0-30); eGFR > 60.00
[2023-06-09] MEDS: SYNTHROID 25 MCG PO (05:38)
--- NOTE | 2023-06-09 08:06 | W.PN.HOSP.TC ---
Today's Communication/Plan
-
repeat ekg to monitor qtc
trial of zofran
echo reviewed, await cardio eval today
Assessment / Plan
Assessment / Plan
# Aflutter with RVR
h/o of PVI and ablation
- on Cardizem drip and oral amiodarone
- remains in afib with HR fluctuating
- eventual EP cardio eval outpatient basis
# Chest pain
Troponin elevation
Possible Cardiomyopathy - type unknown
Chronic diastolic HF
-admission EKG reviewed
-Trop trend ordered
-Eliquis held, on heparin drip
-Nitro drip to be weaned off
-Echocardiogram showing EF 40%, cardio planning to do LHC vs stress test to r/o coronary pathology
# Hypertensive urgency - resolved
-started on nitro drip/Cardizem drip for chest pain/afib at admission for urgency
-started Toprol-XL and amlodipine
#Hypokalemia secondary to nuasea/vomiting
-nausea persisting - check ekg for qtc - 502ms yesterday
-zofran ordered, if truly remains prolonged not many options except tigan
# chronic pancreatitis
- maintain on pancrealipase/pain meds
# Hyperglycemia
-Hemoglobin A1c of 6.
#Hyperlipidemia -Continue simvastatin
# CKD - not true diagnosis - gfr > 60 and cr 0.9, unlikely have ckd
#Hypothyroidism -Continue levothyroxine
#Chronic pancreatitis -Continue Creon
#Chronic pain syndrome/anxiety/depression -Continue duloxetine -Continue Latuda, mirtazapine -Continue Percocet
#Anemia of chronic disease -Hemoglobin stable
DNR/DNI
DVT prophylaxis�heparin drip
Anticipated Discharge: 24 - 48 hours
Subjective/Interval History
-
Date of Service: June 09, 2023
not feeling well
complaining of nausea, poor apetitie
HR remains uncontrolled
Objective Data
-
Labs:
Laboratory Results
06/08/23 06/09/23
20:05 03:00
WBC 14.0 H
Hgb 12.9
Hct 38.8
Plt Count 353
APTT 119.5 H 96.6 H
Sodium 132 L
Potassium 3.6 D
Chloride 94 L
Carbon Dioxide 27
BUN 12
Creatinine 0.9
Glucose 136 H
Calcium 10.0
Vital Signs:
Vital Signs
Temp Pulse Resp BP Pulse Ox
98.4 F 79 20 144/84 97
06/09/23 07:40 06/09/23 05:41 06/09/23 07:40 06/09/23 05:41 06/09/23 07:40
I&O
06/08/23 06/09/23 06/10/23
06:59 06:59 06:59
Intake Total 1707.1 / 1707.1
Output Total 800 / 800 1000 / 1000
Balance -800 / -546.7 707.1 / 707.1
Review of Systems
-
Respiratory: Reports No Symptoms
Cardiac: Reports Chest Pain
Abdomen/GI: Reports Nausea; Denies Abdominal Pain, Vomiting, Diarrhea or Constipated
Physical Exam
-
General: Comfortable; Negative Respiratory Distress
HEENT: Negative Oxygen
Respiratory: Clear to Auscultation
Cardiac: S1/S2, Irregular Rhythm and Tachycardic; Negative Murmur
GI: Soft, Nondistended and Normal Bowel Sounds
Skin: Dry
Neuro: Awake, Alert, Oriented and Nonfocal/Grossly Intact
Psych: Calm and Intact Judgement/Insight
[2023-06-09] MEDS: ZENPEP DELAYED RELEASE CAPSULE 2 CAPSULE PO ×3 (08:36→17:06)
[2023-06-09] MEDS: CYMBALTA DELAYED RELEASE 30 MG PO (08:36)
[2023-06-09] MEDS: PACERONE 200 MG PO ×3 (08:37→22:35)
[2023-06-09] MEDS: TOPROL XL 25 MG PO ×2 (08:37→19:47)
[2023-06-09] MEDS: VITAMIN D3 (cholecalciferol) 25 MCG PO ×2 (08:37→19:47)
[2023-06-09] MEDS: LOW STRENGTH ASPIRIN 81 MG PO (08:37)
[2023-06-09] MEDS: LASIX 20 MG PO (08:38)
[2023-06-09] MEDS: FEOSOL 325 MG PO (08:38)
[2023-06-09] MEDS: MAGNESIUM OXIDE 250 MG PO (08:38)
[2023-06-09] MEDS: VITAMIN B-12 1000 MCG PO (08:38)
[2023-06-09] MEDS: LATUDA 20 MG PO (08:39)
[2023-06-09] MEDS: ZOFRAN 4 MG IV ×2 (08:40→14:48)
--- NOTE | 2023-06-09 08:41 | W.PN.UPDATE ---
Update Note
Progress Note Update
Patient feeling somewhat improved this morning. Remains with nausea. Reports continues with some chest discomfort, however overall improved compared to yesterday. Heart rates are improved on review of telemetry on IV Cardizem drip, will continue
for now in addition to p.o. Amio and p.o. Toprol. Echocardiogram with new reduction in EF, 41%. Troponin peaked at 0.086. For cardiac catheterization today. Currently remains on IV heparin, last dose of eliquis 06/07 AM. d/w nursing
[2023-06-09 09:28] LABS: APTT 70.1 Sec (23.4-35.0)
--- NOTE | 2023-06-09 10:11 | ITS.CL.CATH ---
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
Cardiac Catheterization
Procedure Report:
LEFT HEART CATHETERIZATION
Date of Procedure: June 09, 2023
Referring: Alejandro Guerrero
PROCEDURES:
1. Left heart catheterization and coronary angiogram.
2. Ultrasound-guided
INDICATION: Ms Paulino is a 68-year-old female with past medical history of hypertension, hyperlipidemia, CKD stage IIIa, chronic anemia, prior Takotsubo cardiomyopathy in 2015, chronic pancreatitis, chronic back pain, prior SVT ablation in 1991,
hypothyroidism, chronic right bundle branch block, persistent atrial fibrillation/flutter status post PVI in August 2022 who presented to [facility] with multiple complaints including chest tightness along with elevated blood pressures and not
feeling well generally. She was found to have a troponin I peak of 0.086. She had recurrent paroxysmal A-fib with RVR and an echocardiogram showing mildly reduced LVEF of 31% with global hypokinesis and is now being referred for a left heart cath
to rule out obstructive CAD.
ACCESS: Right radial artery, 5 Martiniquais sheath, under ultrasound-guided
HEMODYNAMICS : (mmHg)
AO (s/d) : 110/74
LV (s/d) : 112/4
LVEDP : 9
CORONARY FINDINGS: Heavily calcified coronary arteries.
DOMINANCE: Right
LEFT MAIN: The left main artery is a large-caliber vessel which gives rise to the left anterior descending artery and the left circumflex artery. There is minimal luminal irregularities
LEFT ANTERIOR DESCENDING: The left into descending artery is a large-caliber vessel which gives rise to multiple small caliber diagonal branches as it courses through the anterior interventricular groove and wraps around the apex. There is mild
diffuse atherosclerotic plaque.
CIRCUMFLEX: The left circumflex artery is a medium caliber vessel which gives rise to 1 major obtuse marginal branch. Mid left circumflex artery has diffuse 30-40% stenosis. Otherwise, there is mild diffuse atherosclerotic plaque.
RIGHT CORONARY ARTERY: The right coronary is a large-caliber vessel which gives rise to the right posterior descending artery and the posterolateral branch. There is mild diffuse atherosclerotic plaque.
SEDATION: 33 minutes of procedural sedation was utilized. An independent medical review coordinator was present to assist with and help manage the patient's level of consciousness and physiologic status.
RADIATION SUMMARY: Fluoro Time (min): 2.7, Dose (mGy): 254.5, DAP (Gy.cm2) : 18.1
Closure Device: Vascular band over right radial artery, 12 cc of air
CONCLUSIONS
1. Heavily calcified coronary arteries and the aortic valve.
2. Non-obstructive coronary artery disease.
3. Normal LVEDP.
RECOMMENDATIONS
1. Goal-directed medical therapy for nonischemic cardiomyopathy and paroxysmal atrial fibrillation.
2. Aggressive management of cardiovascular risk factors.
3. Wean radial band per protocol.
4. Outpatient referral for cardiac rehab.
Copy to: Alejandro Guerrero
Daphney Oneill MD, FACC, [facility]
--- NOTE | 2023-06-09 11:47 | PN.CDI ---
CDI
- -
CDI:
Physician Documentation Request
Admit Date: 06/07/23 20:28
Dear Doctor Fletcher,
Please review the following and provide your response in the progress notes.
Due to conflicting documentation, please clarify the specificity of the hypertension:
Clinical Indicators:
H+P, 06/07
#Hypertensive urgency/emergency
PN, 06/09
# Hypertensive urgency - resolved
#...-started on nitro drip/Cardizem drip for chest pain/afib at admission for urgency
#...-started Toprol-XL and amlodipine
Please clarify which, if any of the following, is a more accurate diagnosis reflecting the type and acuity of the documented hypertension:
Hypertensive Emergency - B/P is severely elevated (systolic > or = to 180 or diastolic > or = to 110) but can occur at lower levels especially in patients who did not previously have high B/P. There is usually associated organ damage. Symptoms may
include: memory loss, LOC, CVA, NH, angina, renal failure, pulmonary edema. Generally requires more aggressive treatment and a hospitalization.
Hypertensive Urgency - B/P is severely elevated (systolic > or = to 180 or diastolic > or = to 110) but there is no associated organ damage. Symptoms may include: headache, shortness of breath, nosebleeds, severe anxiety. Treatment usually consists
of addition to or adjusting of oral medications and does not generally necessitate hospitalization.
Other (please specify)
Use of terms such as suspected, likely, concern for, or probable (associated with a specific diagnosis that is being evaluated, monitored, or treated as if it exists) are acceptable and can be coded in the inpatient setting, when documented at the
time of discharge.
Thank you,
Odessa Ramos RN BSN CCDS
CDI Specialist
please contact via tiger text
Please use your independent medical judgment in providing your response.
[2023-06-09] MEDS: NSS 1000 IV (12:00)
[2023-06-09] MEDS: ZANAFLEX 4 MG PO ×2 (17:06→23:10)
[2023-06-09] MEDS: LIPITOR 10 MG PO (17:07)
--- NOTE | 2023-06-09 19:33 | PTCARENOTE ---
Pt continues to have nausea which is completely relieved after zofran for a few hours then it returns. Pt still has no appetite, half a slice of toast eaten today. Pt had cardiac cath via right radial artery, [address] post procedure,
both removed without problem. Radial site is bruised and soft, no bleeding or hematoma present. Telemetry showed sinus rhythm since @10:45 at a rate @60's with a few minutes of atrial fib/flutter. Diltiazem and heparin infusions discontinued.
[2023-06-09] MEDS: ELIQUIS 5 MG PO (19:47)
--- NOTE | 2023-06-09 20:00 | PTCARENOTE ---
Received patient, was sleeping, awakens to name. Patient diaphoretic, skin warm and moist. Gown and sheets changed. Afebrile, vitals stable. SB/BBB HR in the 50's. Call colvin in reach
[2023-06-09] MEDS: REMERON 30 MG PO (22:35)
--- NOTE | 2023-06-09 23:10 | PTCARENOTE ---
Patient awake watching TV. Complaints of 9 out 10 lower back pain, asking for Percocet and Zanaflex. Mediations given, vitals obtained.
--- NOTE | 2023-06-09 23:30 | PTCARENOTE ---
Patient using call colvin, asking for Zofran for nausea. Telemetry SB with a prolonged QT. Nany spencer and saltines given.
[2023-06-10] VITALS (9 sets, daily range): BP systolic 90–117; BP diastolic 49–81; BMI 24.2
[2023-06-10] MEDS: SYNTHROID 25 MCG PO (04:32)
[2023-06-10] MEDS: PERCOCET 5/325 1 TABLET PO ×4 (04:32→19:54)
[2023-06-10] MEDS: ZANAFLEX 4 MG PO ×3 (04:32→19:54)
[2023-06-10 04:37] LABS: Hematocrit 32.4 % (37.0-47.0); Hemoglobin 11.2 g/dL (12.0-16.0); Mean Corp Hgb Conc. 34.6 g/dL (33.0-37.0); Mean Corpuscular Hgb 30.3 pg (27.0-31.0); Mean Corpuscular Volume 87.6 fL (81.0-99.0); Mean Platelet Volume 10.6 fL (7.4-10.4); Platelet Count 302 10^3/uL (130-400); Red Cell Dist. Width 13.5 % (11.5-14.5)
--- NOTE | 2023-06-10 05:34 | PTCARENOTE ---
Patient walked to the bathroom, voided, 400 cc of dark yellow urine. Sheets and gown changed, sweating overnight, skin moist and warm to touch, afebrile, VSS. Percocet and Zanaflex given for 9 out 10 back pain. Call colvin in reach
[2023-06-10 06:23] LABS: Blood Urea Nitrogen 24 mg/dl (7-17); Calcium 8.7 mg/dl (8.4-10.2); Carbon Dioxide 25 mmol/L (22-30); Chloride 99 mmol/L (98-107); Estimated Creatinine Clearance 21 ml/min; Glucose 131 mg/dl (70-99); Potassium 3.8 mmol/L (3.5-5.1); Sodium 131 mmol/L (135-145); eGFR 26.54
--- NOTE | 2023-06-10 07:50 | W.PN.CARDCBS ---
Addendum entered and electronically signed by Alejandro Guerrero DO 06/10/23 12:01:
I saw and examined the patient.
The Washer Repairman's note was reviewed and I agree with the note.
Comment:
Plan:
Cont to hold lasix and monitor cr
Reduce Amiodarone to 200 mg daily and cont to monitor QTc. Remains sinus bradycardia
With bradycardia, hold Metoprolol for now and monitor HR
Outpt EP eval givaen recurrent parox atrial tachycardia.
Cont Eliquis
Adjust meds for CM as able.
Cath reviewed and without obstructive disease.
Original Note:
Today's Communication / Plan
-
hold lasix. follow Cr
decrease amio. avoid QT prolonging meds. follow QTc
continue toprol, eliquis
OP EP evaluation
uptitration of CM meds as able
Impression / Plan
-
Primary Membership Manager: Dr. JORDY Snow
Assessment:
HTN urgency
Parox atrial tachycardia vs atrial fibrillation with RVR
CP
Elevated troponin, non [place] trop elevation
Hypokalemia
Leukocytosis
Persistent AF/Aflutter s/p post PVI 09/10/22
Chronic OAC with eliquis
Non obstructive CAD by cath 06/09/23
JENNIFER
Chronic RBBB
History of remote SVT ablation 1991
Severe biatrial enlargement
Chronic HFpEF
Hyperlipidemia
Hypothyroidism
CKD3a
Anemia
History of takotsubo cardiomyopathy 2015
chronic pancreatitis
chronic back pain
Cardiac catheterization 2016: Nonobstructive coronary artery disease
ECHO 10/05/2022: EF 60 to 65%, MAC, mild MR, aortic sclerosis, normal right heart with mild pulmonary hypertension, PAP 40 to 45 mmHg, small atrial septal defect status post PVI
ECHO 06/08/23: EF 41%, global hypokinesis, mild to moderate MR, mild TR, trivial pericardial effusion
Cath 06/09/23: mild nonobstructive CAD
Plan:
-reports feeling better today
-now in SB with RBBB. QT appears prolonged. she reports some nausea and has been taking zofran in addition to amio. will decrease amiodarone to 200mg BID. avoid zofran. follow QTc
-eliquis resumed post cath
-trop peaked at 0.086. cath with mild nonobstructive CAD. reviewed results of cath with patient today as well. R radial site c/d/i
-echo with EF 41%, however was while patient was tachycardic. would consider repeat as OP to reassess EF
-continue toprol
-Cr up to 2.0 today. holding OP lasix. possibly recent dye load contributing. follow. if continues to trend up would consider nephro eval. holding off on basilio/arb/aldactone/SGLT2 for now
-During ablation 08/2022 patient was noted to have additional tachycardia which was mapped but not ablated due to venous tortuosity.� Patient for OP EP eval
-K/mag repleted
-d/w nursing
Progress Note - Membership Manager
Subjective
Date of Service: June 10, 2023
reports feels improved today
Objective
Labs:
06/10/23 04:15
06/10/23 05:34
Labs
Hgb 11.2 g/dL (12.0-16.0) L 06/10/23 04:15
Hct 32.4 % (37.0-47.0) L 06/10/23 04:15
Plt Count 302 10^3/uL (130-400) 06/10/23 04:15
APTT 70.1 Sec (23.4-35.0) H 06/09/23 08:47
Sodium 131 mmol/L (135-145) L 06/10/23 05:34
Potassium 3.8 mmol/L (3.5-5.1) 06/10/23 05:34
BUN 24 mg/dl (7-17) H 06/10/23 05:34
Creatinine 2.0 mg/dL (0.6-1.0) H 06/10/23 05:34
Glucose 131 mg/dl (70-99) H 06/10/23 05:34
Troponins
06/07/23 06/07/23 06/08/23
18:54 21:32 02:41
Troponin I 0.083 H* Cancelled 0.086 H*
06/08/23 06/08/23 06/08/23
11:50 14:17 19:00
Troponin I 0.075 H* 0.074 H* Cancelled
Vital Signs and I&O:
Vital Signs
Temp Pulse Resp BP Pulse Ox
97.5 F 54 16 91/59 98
06/10/23 03:49 06/10/23 06:09 06/10/23 03:49 06/10/23 06:09 06/10/23 03:49
Vital Signs
Temp Pulse Resp BP Pulse Ox
97.5 F 54 16 9159 98
06/10/23 03:49 06/10/23 06:09 06/10/23 03:49 06/10/23 06:09 06/10/23 03:49
Intake & Output
06/07/23 06/08/23 06/09/23 06/10/23
07:59 07:59 07:59 07:59
Intake Total 253.3 / 253.3 1453.8 / 1453.8 490 / 490
Output Total 800 / 800 1000 / 1000 1400 / 1400
Balance -546.7 / -546.7 453.8 / 453.8 -910 / -910
Physical Exam
Physical Exam
GEN: No distress, awake, alert, oriented x3. flat affect
HEENT: supple, anicteric, mmm, eomi
LUNGS: CTA B/L, no wheezes/rales
CV: Reg and cayetano, S1/S2, no murmur
ABD: soft, BS+, NT/ND
EXT: No cyanosis, clubbing, edema
NEURO: Gross non-focal
SKIN: Warm, pink, dry. No rash. R radial site c/d/i
[2023-06-10] MEDS: TOPROL XL PO (09:30)
[2023-06-10] MEDS: ZENPEP DELAYED RELEASE CAPSULE 2 CAPSULE PO ×3 (09:42→17:44)
[2023-06-10] MEDS: MAGNESIUM OXIDE 250 MG PO (09:42)
[2023-06-10] MEDS: LATUDA 20 MG PO (09:42)
[2023-06-10] MEDS: VITAMIN B-12 1000 MCG PO (09:43)
[2023-06-10] MEDS: CYMBALTA DELAYED RELEASE 30 MG PO (09:43)
[2023-06-10] MEDS: ELIQUIS 5 MG PO ×2 (09:44→19:54)
[2023-06-10] MEDS: PACERONE 200 MG PO (09:44)
[2023-06-10] MEDS: FEOSOL 325 MG PO (09:44)
[2023-06-10] MEDS: VITAMIN D3 (cholecalciferol) 25 MCG PO ×2 (09:44→19:54)
[2023-06-10] MEDS: LOW STRENGTH ASPIRIN PO (10:38)
[2023-06-10] MEDS: NSS 1000 IV (11:09)
--- NOTE | 2023-06-10 11:47 | CM ---
CM following for DC planning needs.
Met w/ patient at bedside. Pt. feels well, is hopeful for DC in next several days.
Patient has no concerns w/ DC or anticipated needs.
Will cont. to follow.
--- NOTE | 2023-06-10 14:45 | W.PN.HOSP.TC ---
Addendum entered and electronically signed by Ace Bynum MD 06/10/23 15:59:
Adjust dx,
HTN emergency
- chest pain. elevated BP at admit.
Original Note:
Today's Communication/Plan
-
maintain on NS
follow renal function
rate control per cards
Assessment / Plan
Assessment / Plan
# Aflutter with RVR
h/o of PVI and ablation
- off cardizem drip. dose of oral amio decreased to 200mg/d
- bradycardic today, dose of metoprolol being held.
- eventual EP cardio evaluation outpatient basis
# Chest pain
Troponin elevation
Possible Cardiomyopathy - type unknown
Chronic diastolic HF
-admission EKG reviewed
-Trop trend ordered
-Nitro drip weaned off
-Echocardiogram showing EF 40%,
-Left heart catheterization showing calcified coronaries, recommended medical management
# Acute kidney injury
- suspected THA
- weight remains stable at 60kg and less likely lasix use related.
- maintain on NS fluid, repeat BMP in evening.
# Hypertensive urgency - resolved
-started on nitro drip/Cardizem drip for chest pain/afib at admission for urgency
-started Toprol-XL and amlodipine
#Hypokalemia
Nausea/vomiting - Improved
-replace K prn
-Zofran discontinued with QTc prolongation today, nausea better.
# chronic pancreatitis
- maintain on pancrelipase/pain meds
# Hyperglycemia
-Hemoglobin A1c of 6.
#Hyperlipidemia -Continue simvastatin
# CKD - not true diagnosis - gfr > 60 and cr 0.9, unlikely have ckd
#Hypothyroidism -Continue levothyroxine
#Chronic pancreatitis -Continue Creon
#Chronic pain syndrome/anxiety/depression -Continue duloxetine -Continue Latuda, mirtazapine -Continue Percocet
#Anemia of chronic disease -Hemoglobin stable
DNR/DNI
DVT prophylaxis�eliquis
Anticipated Discharge: Within 24 hours
Subjective/Interval History
-
Date of Service: June 10, 2023
Patient feeling significantly better
Nausea is improved and patient have some appetite
Objective Data
-
Labs:
Laboratory Results
06/10/23 06/10/23 06/10/23
04:15 05:34 18:00
WBC 10.0
Hgb 11.2 L
Hct 32.4 L
Plt Count 302
Sodium Cancelled 131 L Pending
Potassium Cancelled 3.8 Pending
Chloride Cancelled 99 Pending
Carbon Dioxide Cancelled 25 Pending
BUN Cancelled 24 H Pending
Creatinine Cancelled 2.0 H Pending
Glucose Cancelled 131 H Pending
Calcium Cancelled 8.7 Pending
Vital Signs:
Vital Signs
Temp Pulse Resp BP Pulse Ox
98.6 F 65 20 116/81 96
06/10/23 12:06 06/10/23 12:06 06/10/23 12:06 06/10/23 12:06 06/10/23 12:06
I&O
06/09/23 06/10/23 06/11/23
06:59 06:59 06:59
Intake Total 1707.1 / 1707.1 490 / 490
Output Total 1000 / 1000 1400 / 1400
Balance 707.1 / 707.1 -910 / -910
Review of Systems
-
All other systems: Reviewed and negative
Physical Exam
-
General: Comfortable; Negative Respiratory Distress
HEENT: Negative Oxygen
Respiratory: Clear to Auscultation
Cardiac: S1/S2, Irregular Rhythm and Tachycardic; Negative Murmur
GI: Soft, Nondistended and Normal Bowel Sounds
Skin: Dry
Neuro: Awake, Alert, Oriented and Nonfocal/Grossly Intact
Psych: Calm and Intact Judgement/Insight
[2023-06-10] MEDS: LIPITOR 10 MG PO (17:44)
--- NOTE | 2023-06-10 17:55 | PTCARENOTE ---
Toprol held this morning for low BP . Telemetry showed sinus cayetano 5o's to 70's, QTc 541ms, zofran stopped . Pt much more conversant today, up independently and eating >50% of all 3 meals. Pt given IV fluids for Cr 2.0.
[2023-06-10 18:43] LABS: Blood Urea Nitrogen 29 mg/dl (7-17); Calcium 5.6 mg/dl (8.4-10.2); Carbon Dioxide 17 mmol/L (22-30); Chloride 109 mmol/L (98-107); Estimated Creatinine Clearance 32 ml/min; Glucose 106 mg/dl (70-99); Potassium 2.7 mmol/L (3.5-5.1); Sodium 133 mmol/L (135-145); eGFR 44.51
--- NOTE | 2023-06-10 20:00 | PTCARENOTE ---
Assumed care. Patient more awake, appears well, improved appetite, denies nausea. IVF infusing. BMP recollected in left arm. Prior BMP collected in right arm above infusing IV. Percent given for back pain, sister at bedside, call colvin in reach
[2023-06-10 20:18] LABS: Blood Urea Nitrogen 44 mg/dl (7-17); Calcium 8.9 mg/dl (8.4-10.2); Carbon Dioxide 23 mmol/L (22-30); Chloride 94 mmol/L (98-107); Estimated Creatinine Clearance 19 ml/min; Glucose 134 mg/dl (70-99); Potassium 3.6 mmol/L (3.5-5.1); Sodium 129 mmol/L (135-145); eGFR 23.68
[2023-06-10] MEDS: TOPROL XL 25 MG PO (22:41)
[2023-06-10] MEDS: REMERON 30 MG PO (22:41)
[2023-06-11] MEDS: ZANAFLEX 4 MG PO ×2 (01:01→11:38)
[2023-06-11] MEDS: PERCOCET 5/325 1 TABLET PO ×3 (01:01→10:17)
[2023-06-11 04:25] VITALS: BP 126/80
[2023-06-11 04:43] VITALS: BMI 25.1
[2023-06-11 05:08] LABS: Hematocrit 30.6 % (37.0-47.0); Hemoglobin 10.2 g/dL (12.0-16.0); Mean Corp Hgb Conc. 33.3 g/dL (33.0-37.0); Mean Platelet Volume 10.3 fL (7.4-10.4); Platelet Count 270 10^3/uL (130-400); Red Cell Dist. Width 13.3 % (11.5-14.5); White Blood Cell Count 8.3 10^3/uL (4.8-10.8)
[2023-06-11 05:25] LABS: Blood Urea Nitrogen 41 mg/dl (7-17); Calcium 8.8 mg/dl (8.4-10.2); Carbon Dioxide 22 mmol/L (22-30); Chloride 102 mmol/L (98-107); Estimated Creatinine Clearance 23 ml/min; Glucose 117 mg/dl (70-99); Potassium 4.1 mmol/L (3.5-5.1); Sodium 130 mmol/L (135-145); eGFR 30.12
--- NOTE | 2023-06-11 05:44 | PTCARENOTE ---
Patient walking to the bathroom independently. VSS, SR BBB, labs collected, EKG complete, call colvin in reach
[2023-06-11] MEDS: SYNTHROID 25 MCG PO (06:20)
[2023-06-11 07:27] VITALS: BP 127/75
[2023-06-11] MEDS: CYMBALTA DELAYED RELEASE 30 MG PO (09:15)
[2023-06-11] MEDS: ZENPEP DELAYED RELEASE CAPSULE 2 CAPSULE PO ×2 (09:15→11:45)
[2023-06-11] MEDS: MAGNESIUM OXIDE 250 MG PO (09:16)
[2023-06-11] MEDS: ELIQUIS 5 MG PO (09:16)
[2023-06-11] MEDS: PACERONE 200 MG PO (09:16)
[2023-06-11] MEDS: TOPROL XL 25 MG PO (09:16)
[2023-06-11] MEDS: VITAMIN B-12 1000 MCG PO (09:16)
[2023-06-11] MEDS: LATUDA 20 MG PO (09:17)
[2023-06-11] MEDS: FEOSOL 325 MG PO (09:18)
[2023-06-11] MEDS: VITAMIN D3 (cholecalciferol) 25 MCG PO (09:18)
--- NOTE | 2023-06-11 10:13 | W.PN.CARDCBS ---
Addendum entered and electronically signed by Cosmo Snow MD 06/11/23 11:30:
Patient feels well wants to go home
Allergies are none:
Home medicines: Amiodarone 200 mg a day, amlodipine 5 mg a day, Cymbalta 30 mg a day, Eliquis 5 mg twice daily, furosemide 20 mg a day, levothyroxine 25 mcg a day, Latuda, metoprolol ER 12.5 mg twice daily, Remeron 30 mg a day, oxycodone,
simvastatin 20 mg a day, tizanidine
Current medications: Iron, furosemide 20 mg a day, amlodipine 5 mg a day, Cymbalta 30 mg a day, Latuda 20 mg a day, magnesium, amiodarone 200 mg daily
PMH/PSH/SH/FH: Reviewed
Review of systems negative except as above
127/75, pulse 80, resp rate 16, afebrile, 95%, weight 62.1 kg
Head neck exam unremarkable head neck exam unremarkable, lungs are clear, regular rate and rhythm, abdomen benign extremities without clubbing cyanosis or edema
Hemoglobin 10.2, sodium 130, BUN/creatinine 41 and 1.8, creatinine had been 0.9 on admission was 2.2 yesterday
Assessment:
HTN urgency
Parox atrial tachycardia vs atrial fibrillation with RVR
CP
Elevated troponin, non [place] trop elevation
Hypokalemia
Leukocytosis
Persistent AF/Aflutter s/p post PVI 09/10/22
Chronic OAC with eliquis
Non obstructive CAD by cath 06/09/23
JENNIFER
Chronic RBBB
History of remote SVT ablation 1991
Severe biatrial enlargement
Chronic HFpEF
Hyperlipidemia
Hypothyroidism
CKD3a
Anemia
History of takotsubo cardiomyopathy 2015
chronic pancreatitis
chronic back pain
Cardiac catheterization 2016: Nonobstructive coronary artery disease
ECHO 10/05/2022: EF 60 to 65%, MAC, mild MR, aortic sclerosis, normal right heart with mild pulmonary hypertension, PAP 40 to 45 mmHg, small atrial septal defect status post PVI
ECHO 06/08/23: EF 41%, global hypokinesis, mild to moderate MR, mild TR, trivial pericardial effusion
Cath 06/09/23: mild nonobstructive CAD
Plan:
She appears stable okay for discharge.
I would increase amiodarone to 200 mg twice daily for 2 weeks then 200 mg a day.
Recommended cardiac medications at discharge:
Amiodarone 200 mg twice daily x 2 weeks, then 200 mg daily (patient says she does not need a new prescription)
Furosemide 20 mg a day
Amlodipine 5 mg daily
Atorvastatin 10 mg at bedtime
Metoprolol ER 25 mg twice daily
Apixaban 5 mg twice daily
Please draw a BMP 1 week
We will arrange for cardiac follow-up
Original Note:
Today's Communication / Plan
-
QTc improving. continue po amio 200mg daily. avoid zofran
continue toprol, eliquis
OP EP eval
follow Cr - needs follow up BMP as OP
ambulate
Impression / Plan
-
Primary Assistant Customer Service Manager: Dr. JORDY Snow
Assessment:
HTN urgency
Parox atrial tachycardia vs atrial fibrillation with RVR
CP
Elevated troponin, non [place] trop elevation
Hypokalemia
Leukocytosis
Persistent AF/Aflutter s/p post PVI 09/10/22
Chronic OAC with eliquis
Non obstructive CAD by cath 06/09/23
JENNIFER
Chronic RBBB
History of remote SVT ablation 1991
Severe biatrial enlargement
Chronic HFpEF
Hyperlipidemia
Hypothyroidism
CKD3a
Anemia
History of takotsubo cardiomyopathy 2015
chronic pancreatitis
chronic back pain
Cardiac catheterization 2016: Nonobstructive coronary artery disease
ECHO 10/05/2022: EF 60 to 65%, MAC, mild MR, aortic sclerosis, normal right heart with mild pulmonary hypertension, PAP 40 to 45 mmHg, small atrial septal defect status post PVI
ECHO 06/08/23: EF 41%, global hypokinesis, mild to moderate MR, mild TR, trivial pericardial effusion
Cath 06/09/23: mild nonobstructive CAD
Plan:
-states she is feeling well
-she presented with chest discomfort and HTN urgency. trop peaked 0.086. reviewed results of cath with patient - mild nonobstructive CAD
-remains in SR upon review of tele. QTc improved compared to EKG from 06/10. continue amiodarone 200mg daily. avoid zofran and additional QTc prolonging meds
-continue eliquis
-During ablation 08/2022 patient was noted to have additional tachycardia which was mapped but not ablated due to venous tortuosity. will arrange for OP EP evaluation
-echo with EF 41%, however was while patient was tachycardic. would consider repeat as OP to reassess EF
-continue toprol
-Cr improving, 1.8 today. holding OP lasix. likely recent dye load contributing. holding off on basilio/arb/aldactone/SGLT2 for now
-encouraged ambulation
-possible DC later today vs in AM
-d/w nursing
Progress Note - Assistant Customer Service Manager
Subjective
Date of Service: June 11, 2023
Reports feeling well today, nausea improved. Denies chest pain, shortness of breath, palpitations.
Objective
Labs:
06/11/23 04:33
06/11/23 04:33
Labs
Hgb 10.2 g/dL (12.0-16.0) L 06/11/23 04:33
Hct 30.6 % (37.0-47.0) L 06/11/23 04:33
Plt Count 270 10^3/uL (130-400) 06/11/23 04:33
APTT 70.1 Sec (23.4-35.0) H 06/09/23 08:47
Sodium 130 mmol/L (135-145) L 06/11/23 04:33
Potassium 4.1 mmol/L (3.5-5.1) 06/11/23 04:33
BUN 41 mg/dl (7-17) H 06/11/23 04:33
Creatinine 1.8 mg/dL (0.6-1.0) H 06/11/23 04:33
Glucose 117 mg/dl (70-99) H 06/11/23 04:33
Troponins
06/08/23 06/08/23 06/08/23
11:50 14:17 19:00
Troponin I 0.075 H* 0.074 H* Cancelled
Vital Signs and I&O:
Vital Signs
Temp Pulse Resp BP Pulse Ox
98.4 F 80 16 127/75 95
06/11/23 07:26 06/11/23 09:16 06/11/23 07:26 06/11/23 09:16 06/11/23 09:22
Vital Signs
Temp Pulse Resp BP Pulse Ox
98.4 F 80 16 127/75 95
06/11/23 07:26 06/11/23 09:16 06/11/23 07:26 06/11/23 09:16 06/11/23 09:22
Intake & Output
06/09/23 06/10/23 06/11/23 06/12/23
07:59 07:59 07:59 07:59
Intake Total 1453.8 / 1453.8 490 / 490 1420 / 1420 180 / 180
Output Total 1000 / 1000 1400 / 1400 500 / 500 450 / 450
Balance 453.8 / 453.8 -910 / -910 920 / 920 -270 / -270
Physical Exam
Physical Exam
GEN: No distress, awake, alert, oriented x3.
HEENT: supple, anicteric, mmm, eomi
LUNGS: CTA B/L, no wheezes/rales
CV: Reg and cayetano, S1/S2, no murmur
ABD: soft, BS+, NT/ND
EXT: No cyanosis, clubbing, edema
NEURO: Gross non-focal
SKIN: Warm, pink, dry. No rash. R radial site c/d/i
--- NOTE | 2023-06-11 10:19 | W.PN.HOSP.TC ---
Today's Communication/Plan
-
no more IVF, f/u renal function
possible d/c today vs tomorrow- await cardio input
Assessment / Plan
Assessment / Plan
# Aflutter with RVR - Resolved
h/o of PVI and ablation
- off cardizem drip. dose of oral amio decreased to 200mg/d
- bradycardic yesterday and dose of metoprolol being held.
- eventual EP cardio evaluation outpatient basis
# Non obstructive CAD
Troponin elevation
Possible Cardiomyopathy - type unknown
Chronic diastolic HF
-admission EKG reviewed
-Trop trend ordered
-Nitro drip weaned off
-Echocardiogram showing EF 40%,
-Left heart catheterization showing calcified coronaries, recommended medical management
# Acute kidney injury - improving
- suspected THA
- weight up in 62kg
- got 1 L NS yesterday, now off.
- f/u BMP script provided within 1 week
# Hypertensive urgency - resolved
-started on nitro drip/Cardizem drip for chest pain/afib at admission for urgency
-started Toprol-XL and amlodipine
#Hypokalemia
Nausea/vomiting - Improved
-replace K prn
-Zofran discontinued with QTc prolongation today, nausea better.
# chronic pancreatitis
- maintain on pancrelipase/pain meds
# Hyperglycemia
-Hemoglobin A1c of 6.
#Hyperlipidemia -Continue simvastatin
# CKD - not true diagnosis - gfr > 60 and cr 0.9, unlikely have ckd
#Hypothyroidism -Continue levothyroxine
#Chronic pancreatitis -Continue Creon
#Chronic pain syndrome/anxiety/depression -Continue duloxetine -Continue Latuda, mirtazapine -Continue Percocet
#Anemia of chronic disease -Hemoglobin stable
DNR/DNI
DVT prophylaxis�eliquis
Discussed with cardiology
Anticipated Discharge: Within 24 hours
Subjective/Interval History
-
Date of Service: June 11, 2023
Sitting up in bed having breakfast
Feeling much much better according to patient
Currently in sinus rhythm
No other acute issues reported overnight
Objective Data
-
Labs:
Laboratory Results
06/11/23
04:33
WBC 8.3
Hgb 10.2 L
Hct 30.6 L
Plt Count 270
Sodium 130 L
Potassium 4.1
Chloride 102
Carbon Dioxide 22
BUN 41 H
Creatinine 1.8 H
Glucose 117 H
Calcium 8.8
Vital Signs:
Vital Signs
Temp Pulse Resp BP Pulse Ox
98.4 F 80 16 127/75 95
06/11/23 07:26 06/11/23 09:16 06/11/23 07:26 06/11/23 09:16 06/11/23 09:22
I&O
06/10/23 06/11/23 06/12/23
06:59 06:59 06:59
Intake Total 490 / 490 1420 / 1420 180 / 180
Output Total 1400 / 1400 500 / 500 450 / 450
Balance -910 / -910 920 / 920 -270 / -270
Review of Systems
-
Respiratory: Reports No Symptoms
Cardiac: Reports No Symptoms
Abdomen/GI: Reports No Symptoms
Physical Exam
-
General: Comfortable; Negative Respiratory Distress
HEENT: Negative Oxygen
Respiratory: Clear to Auscultation
Cardiac: Regular Rhythm and S1/S2; Negative Murmur
Skin: Dry
Neuro: Awake, Alert, Oriented and Nonfocal/Grossly Intact
Psych: Calm and Intact Judgement/Insight
[2023-06-11 11:45] VITALS: BP 153/88
--- NOTE | 2023-06-11 14:42 | PTCARENOTE ---
Pt seen by Aria Caba. Telemetry and IV device removed. Discharge instructions reviewed with pt regarding medications an dtheir possible side effects, activity guidelines, reporting cares and concerns and follow up appt's. Very good
understanding verbalized. Pt escorted out via wheelchair and pt discharged to home.
--- NOTE | 2023-06-12 07:12 | W.DCSUMMARY ---
Discharge Summary
Discharge Data
Date of Admission: 06/07/23
Date of Discharge: 06/11/23
-
Pending Results: No
Hospital Course
Discharging Physician : Dr Ace Bynum
Disposition : To home
Primary care physician : Dr Shamar Alfaro
Principal Discharge diagnosis :
Atrial flutter with rapid ventricular rate
Nonobstructive coronary disease
Nonischemic cardiomyopathy with EF of 40%
Acute kidney injury. Suspected contrast-induced nephropathy
Hypertensive emergency
Nausea and vomiting
Chronic Discharge diagnosis :
History of chronic pancreatitis
History of chronic pain
Prediabetes
Hyperlipidemia
Hypothyroidism
Anxiety/depression
Anemia of chronic disease
Hospital Course :
Patient is a 68-year-old female with above-mentioned past medical history came to ER for having new left-sided chest tightness and tachycardia. Patient denied of having any associated shortness of breath/dizziness at admit. In ER patient was found
to be tachycardic with underlying A-fib with rapid ventricular rate. Patient was started on Cardizem drip with increased oral amiodarone. Patient heart rate improved with therapy although not controlled, Cardizem was discontinued and patient was
maintained on higher dose of oral amiodarone. Patient had some persistent nausea was felt to be related to high-dose of amiodarone, dose of Pacerone was decreased. Patient also given metoprolol trial although developed some bradycardia. After
improvement of nausea symptom patient at discharge was recommended to be on midodrine twice daily for 2 weeks with lowering to once daily dose after that. Patient to follow-up with outpatient EP cardiology for further assessment.
As patient complaining of left-sided chest tightness/pain there was concern of underlying coronary disease. Echocardiogram was done was showing lower EF 40% with some wall motion defects. Patient was on nitro drip which was Discontinued. Patient
had a left heart catheterization which showed nonobstructive coronary artery disease. Cardiology recommended for patient to have medical management of nonobstructive coronary disease.
Acute kidney injury, developed post left heart catheterization. Suspected to be contrast-induced nephropathy. Patient was taken off of Lasix and was given 1 L of normal saline. Renal function improved although did not normalize. A follow-up BMP
prescription was provided at discharge.
Important imaging findings :
TTE 2o
Normal left ventricular wall thickness.�Normal left ventricular chamber size. Mildly reduced left ventricular systolic function.
Left ventricular ejection fraction is 41% by Arnold's method. Global hypokinesis. EF% may be underestimated due to heart rate elevation.
Indexed LA volume is severely abnormal (> 48 mL/m2). Mildly dilated right atrium. Mild to moderate mitral regurgitation. No aortic regurgitation is seen.
Mild tricuspid regurgitation. Pulmonic valve opens normally.�Trivial pericardial effusion in the anterior space. The IVC is of normal size and demonstrates normal respiratory variation.
Compared to 2022 echocardiogram ejection fraction has diminished and is now mildly reduced. May be underestimated due to tachycardia
Procedure findings :
LHC on 06/09
1.� Heavily calcified coronary arteries and the aortic valve.�
2.� Non-obstructive coronary artery disease.
3.� Normal LVEDP.
Discharge Plan
-
Patient Disposition: Home (Routine Discharge)
Discharge Diagnosis/Procedures: Systolic HF, Afib/RVR,
Diet: Low Fat and 2 Gram Sodium
Activity: As tolerated
Driving Restrictions: As prior to admission
Bathing Restrictions: OK to Shower
Blood Work: BMP in 1 week
Referrals:
Glenn Alfaro MD [Family Provider] - in one week
Krishna Villegas MD [Active] - 07/01/23 8:20 am (You have a cardiology EP appointment at the [place] office. Please call with questions. )
Prescriptions:
New
metoprolol succinate 25 mg Tablet Extended Release 24 Hr
25 mg PO BID Qty: 60 0RF
amiodarone 200 mg tablet
200 mg PO DAILY Qty: 1 0RF
Continued
tizanidine 4 mg tablet
4 mg PO TID PRN (Reason: muscle spasms)
levothyroxine 25 mcg tablet
25 mcg PO DAILY
simvastatin 20 mg tablet
20 mg PO QPM
lurasidone [Latuda] 20 mg tablet
20 mg PO DAILY
cyanocobalamin (vitamin B-12) 1,000 mcg Tablet
1,000 mcg PO DAILY
mirtazapine 30 mg tablet
30 mg PO HS
Creon 24,000-76,000 -120,000 unit capsule,delayed release(DR/EC)
2 cap PO MEALS
oxycodone-acetaminophen 5-325 mg tablet
1 tab PO Q4HPRN PRN (Reason: severe pain)
Patient Comments:
06/07/2023, pt. filled this med. on 05/27/2023 for 150 tablets according to PDMP.
amlodipine 5 mg Tablet
5 mg PO DAILY
Eliquis 5 mg Tablet
5 mg PO BID
magnesium oxide 250 mg magnesium Tablet
250 mg PO DAILY
cholecalciferol (vitamin D3) [Vitamin D3] 25 mcg (1,000 unit) Tablet
25 mcg PO BID
duloxetine 30 mg Capsule,Delayed Release(Dr/Ec)
30 mg PO DAILY
ferrous sulfate [iron] 325 mg (65 mg iron) Tablet
325 mg PO DAILY
Held
furosemide 20 mg Tablet
20 mg PO DAILY
Hold Instructions: Resume on 06/14/23.
Discontinued
amiodarone [Pacerone] 200 mg tablet
200 mg PO DAILY
metoprolol succinate 25 mg Tablet Extended Release 24 Hr
12.5 mg PO BID
Discharge Orders:
Discharge Patient (As Directed); Ordered 06/11/23
Ordered By: Ace Bynum
Care Plan Goals
Care Plan Goals:
Problem: Readiness for enhanced knowledge related to diagnosis and treatment plan
Goal: Understand your diagnosis and treatment plan needs, including medications if applicable.
Instructions: Know your diagnosis, underlying causes and treatment plan options, including medications if applicable. Consult with your health care team to learn about your diagnosis and treatment plan, including medications if applicable.
Discharge Date and Time
Discharge Date/Time: 06/11/23 14:11
== END 2023-06-11 14:11 | disposition home or self-care (01) | DRG 287 ==
LOC: IVU 20:28
PROVIDERS: Emergency Medicine; ADMITTING PHYSICIAN Hospitalist; ATTENDING PHYSICIAN Hospitalist; EMERGENCY PHYSICIAN Emergency Medicine; FAMILY PHYSICIAN Internal Medicine; OTHER PHYSICIAN Nuclear Medicine Nuclear Cardiology
PROC: 4A023N7 Measurement of Cardiac Sampling and Pressure, Left Heart, Percutaneous Approach (ICD-10-PCS; 2023-06-09)
PROC: B2111ZZ Fluoroscopy of Multiple Coronary Arteries using Low Osmolar Contrast (ICD-10-PCS; 2023-06-09)
PROC: B2151ZZ Fluoroscopy of Left Heart using Low Osmolar Contrast (ICD-10-PCS; 2023-06-09)
DX: I16.1 Hypertensive emergency (principal); I48.19 Other persistent atrial fibrillation; K86.1 Other chronic pancreatitis; I50.42 Chronic combined systolic (congestive) and diastolic (congestive) heart failure; N17.9 Acute kidney failure, unspecified; I50.32 Chronic diastolic (congestive) heart failure; I47.19 Other supraventricular tachycardia; I48.92 Unspecified atrial flutter; I5A Non-ischemic myocardial injury (non-traumatic); I13.0 Hypertensive heart and chronic kidney disease with heart failure and stage 1 through stage 4 chronic kidney disease, or unspecified chronic kidney disease; Z87.891 Personal history of nicotine dependence; Z66 Do not resuscitate; E87.6 Hypokalemia; R73.9 Hyperglycemia, unspecified; E78.00 Pure hypercholesterolemia, unspecified; N18.31 Chronic kidney disease, stage 3a; E03.9 Hypothyroidism, unspecified; G89.4 Chronic pain syndrome; F32.9 Major depressive disorder, single episode, unspecified; F41.9 Anxiety disorder, unspecified; D63.8 Anemia in other chronic diseases classified elsewhere; Z79.01 Long term (current) use of anticoagulants; I25.10 Atherosclerotic heart disease of native coronary artery without angina pectoris; R11.2 Nausea with vomiting, unspecified
CPT/HCPCS: 71045; 76937; 80048; 80053; 80061; 82962; 83036; 83735; 84484; 85025; 85027; 85730; 93005; 93306; 93458; 99152; 99153; 99291; C1894; Q9967

== ENCOUNTER 2023-07-19 11:00 | Emergency (ER) | payer OTHER, SELFPAY ==
[2023-07-19 11:12] VITALS: BP 169/93
[2023-07-19 11:32] LABS: % Basophils 0.6 % (0-2); % Eosinophils 0.2 % (0-6); % Immature Granulocytes 1.3 % (0-0.5); % Lymphocytes 17.5 % (20.5-51.1); % Monocytes 8.6 % (1.7-9.3); % Neutrophils 71.8 % (42.2-75.2); Absolute Basophils 0.1 10^3/uL (0-0.2); Absolute Immature Granulocytes 0.1 10^3/uL (0-0.05); Absolute Lymphocytes 1.9 10^3/uL (1.2-3.4); Absolute Monocytes 0.9 10^3/uL (0.1-0.6); Absolute Neutrophils 7.7 10^3/uL (1.4-6.5); Hematocrit 40.1 % (37.0-47.0); Hemoglobin 13.5 g/dL (12.0-16.0); Mean Corp Hgb Conc. 33.7 g/dL (33.0-37.0); Mean Corpuscular Hgb 30.7 pg (27.0-31.0); Mean Corpuscular Volume 91.1 fL (81.0-99.0); Mean Platelet Volume 9.3 fL (7.4-10.4); Nucleated Red Blood Cells % 0 %; Platelet Count 424 10^3/uL (130-400); White Blood Cell Count 10.7 10^3/uL (4.8-10.8)
[2023-07-19 11:53] LABS: ALT (SGPT) 21 U/L (0-35); AST (SGOT) 33 U/L (14-36); Albumin 4.8 g/dl (3.5-5.0); Alkaline Phosphatase 115 U/L (38-126); Blood Urea Nitrogen 25 mg/dl (7-17); Calcium 10.4 mg/dl (8.4-10.2); Carbon Dioxide 23 mmol/L (22-30); Chloride 101 mmol/L (98-107); Glucose 148 mg/dl (70-99); Potassium 3.3 mmol/L (3.5-5.1); Sodium 134 mmol/L (135-145); Total Bilirubin 0.6 mg/dl (0.2-1.3); Total Protein 8.4 g/dl (6.3-8.2); Troponin I 0.013 ng/ml; eGFR 40.73
--- NOTE | 2023-07-19 15:39 | ED.GENMED ---
History of Present Illness
<Edwar Jade PA-C - Last Filed: 07/19/23 19:02>
General
Chief Complaint: Blood Pressure Problem
Source: patient
Exam Limitations: none
Time Seen by Provider: 07/19/23 15:23
Travel History
Have you had any contact with someone who has COVID-19?: No
Do you have any symptoms of coronavirus? Fever > 100 degrees, chills, cough, shortness of breath, sore throat, loss of taste or smell, muscle aches, or headache?: No
History of Present Illness
History of Present Illness:
68-year-old female with history of A-fib, and nonischemic cardiomyopathy, hypertension presents with chest tightness and elevated blood pressure readings at home starting yesterday. She was here about a month ago for chest pain and elevated
troponin. Had a cardiac catheterization which showed nonobstructive coronary artery disease. She was told yesterday by her cardiology team to increase her metoprolol. She took a double dose of metoprolol yesterday as well as a double dose of
amlodipine but her blood pressures remain somewhat high. She has been getting diastolics over 125. No measurable fever. She is nauseous and has vomited once or twice.
Past History
<Edwar Jade PA-C - Last Filed: 07/19/23 19:02>
Past History
ED Past Medical History: Arrthythmia (RBBB), COPD, HTN, Hypercholesterolemia, Hypothyroidism, Psychiatric (MDD), Other (Chronic kidney disease, anemia, Takotsubo's cardiomyopathy, chronic pancreatitis, chronic back pain) and Other (Vit D defic)
ED Past Surgical History: Appendectomy, Cardiac (SVT Ablation), Gynecological (Hysterectomy) and Other (lumbar surgery L5-S2; pelvic fx)
Social History
Tobacco: Former smoker
Alcohol: None
Drug: Other
Personal:
Living: with family
Employment: Not employed
Family History
Family History: Other (reviewed and non-contributory)
Phy Exam
<Edwar Jade PA-C - Last Filed: 07/19/23 19:02>
Physical Exam
Physical Exam:
General: Well-appearing female no acute respiratory distress
HEENT: Normocephalic atraumatic neck supple
Heart: Regular rate and rhythm no murmurs
Lungs: Clear to auscultation bilaterally no wheezing
Abdomen: Soft nontender nondistended no guarding rebound normal bowel sounds
Ext: No cyanosis
Skin: warm, no rashes
Course
<Edwar Jade PA-C - Last Filed: 07/19/23 19:02>
Orders/Labs/Results
Orders:
Orders
07/19/23 11:15
Electrocardiogram (*1) Urgent
Reason for Study: Hypertension, Benign
EKG- Treatment ONCE
07/19/23 11:24
Complete Blood Count/With Diff Urgent
Comprehensive Metabolic Panel Urgent
Lipase Urgent
Comment: ADD
Troponin I Urgent
07/19/23 15:36
Metoprolol [Lopressor] 25 mg PO NOW STA
Ondansetron Injectable [Zofran] 4 mg IV NOW STA
07/19/23 15:38
Add On- LAB Urgent
Tests Added?: lipase
07/19/23 16:07
COVID-19 Antigen Stat
Source: Nasal Swab
Influenza A+B Rapid Molecular Urgent
JAZ Source: Nasal Swab
Specimen Description:
07/19/23 16:34
Oxycodone/Acetaminophen [Percocet 5/325] 1 tablet PO NOW STA
07/19/23 16:45
Troponin I Urgent
07/19/23 18:29
HydrALAZINE [Apresoline] 25 mg PO NOW STA
Abnormal Lab Results
07/19/23
11:24
Plt Count 424 H 10^3/uL
(130-400)
Abs Immat Gran (auto) 0.1 H 10^3/uL
(0-0.05)
Absolute Neuts (auto) 7.7 H 10^3/uL
(1.4-6.5)
Absolute Monos (auto) 0.9 H 10^3/uL
(0.1-0.6)
Immature Gran % 1.3 H %
(0-0.5)
Lymphocytes % 17.5 L %
(20.5-51.1)
Sodium 134 L mmol/L
(135-145)
Potassium 3.3 L mmol/L
(3.5-5.1)
BUN 25 H mg/dl
(7-17)
Creatinine 1.4 H mg/dL
(0.6-1.0)
Glucose 148 H mg/dl
(70-99)
Calcium 10.4 H mg/dl
(8.4-10.2)
Total Protein 8.4 H g/dl
(6.3-8.2)
07/19/23 11:24
07/19/23 11:24
Vital Signs
Initial and Last Documented VS:
Initial Vital Signs
Temp Pulse Resp BP Pulse Ox
98.0 F 75 16 169/93 98
07/19/23 11:12 07/19/23 11:12 07/19/23 11:12 07/19/23 11:12 07/19/23 11:12
Last Documented Vital Signs
Temp Pulse Resp BP Pulse Ox
98.0 F 80 16 155/96 98
07/19/23 11:12 07/19/23 16:10 07/19/23 11:12 07/19/23 16:10 07/19/23 11:12
<Norma Almaguer MD - Last Filed: 07/19/23 19:07>
Orders/Labs/Results
Orders:
Orders
07/19/23 11:15
Electrocardiogram (*1) Urgent
Reason for Study: Hypertension, Benign
EKG- Treatment ONCE
07/19/23 11:24
Complete Blood Count/With Diff Urgent
Comprehensive Metabolic Panel Urgent
Lipase Urgent
Comment: ADD
Troponin I Urgent
07/19/23 15:36
Metoprolol [Lopressor] 25 mg PO NOW STA
Ondansetron Injectable [Zofran] 4 mg IV NOW STA
07/19/23 15:38
Add On- LAB Urgent
Tests Added?: lipase
07/19/23 16:07
COVID-19 Antigen Stat
Source: Nasal Swab
Influenza A+B Rapid Molecular Urgent
JAZ Source: Nasal Swab
Specimen Description:
07/19/23 16:34
Oxycodone/Acetaminophen [Percocet 5/325] 1 tablet PO NOW STA
07/19/23 16:45
Troponin I Urgent
07/19/23 18:29
HydrALAZINE [Apresoline] 25 mg PO NOW STA
Abnormal Lab Results
07/19/23
11:24
Plt Count 424 H 10^3/uL
(130-400)
Abs Immat Gran (auto) 0.1 H 10^3/uL
(0-0.05)
Absolute Neuts (auto) 7.7 H 10^3/uL
(1.4-6.5)
Absolute Monos (auto) 0.9 H 10^3/uL
(0.1-0.6)
Immature Gran % 1.3 H %
(0-0.5)
Lymphocytes % 17.5 L %
(20.5-51.1)
Sodium 134 L mmol/L
(135-145)
Potassium 3.3 L mmol/L
(3.5-5.1)
BUN 25 H mg/dl
(7-17)
Creatinine 1.4 H mg/dL
(0.6-1.0)
Glucose 148 H mg/dl
(70-99)
Calcium 10.4 H mg/dl
(8.4-10.2)
Total Protein 8.4 H g/dl
(6.3-8.2)
07/19/23 11:24
07/19/23 11:24
Vital Signs
Initial and Last Documented VS:
Initial Vital Signs
Temp Pulse Resp BP Pulse Ox
98.0 F 75 16 169/93 98
07/19/23 11:12 07/19/23 11:12 07/19/23 11:12 07/19/23 11:12 07/19/23 11:12
Last Documented Vital Signs
Temp Pulse Resp BP Pulse Ox
98.0 F 80 16 155/96 98
07/19/23 11:12 07/19/23 16:10 07/19/23 11:12 07/19/23 16:10 07/19/23 11:12
<Edwar Jade PA-C - Last Filed: 07/19/23 19:02>
*Critical Care Note
Total Time (30-74mins, 75-104mins- exclusive of procedures): Not Applicable
<Edwar Jade PA-C - Last Filed: 07/19/23 19:02>
Update Note
Update Note:
Patient reevaluated multiple times. Discussed with cardiology regarding elevated blood pressure readings. Their recommendation is to increase amlodipine to 5 mg twice a day and continue her current dose of metoprolol 25 mg. Troponins here are
undetectable. She had a uneventful catheterization a month ago. Discussed plan with patient who is in agreement. Will give a dose of hydralazine here per recommendations of cardiology and discharged
ED Attending Note
<EMERALD Germain-C - Last Filed: 07/19/23 19:02>
-
Portions of this chart may have been created with voice recognition software.� Occasional wrong word or��sound alike� substitutions may have occurred due to the inherent limitations of voice recognition software.
<Norma Almaguer MD - Last Filed: 07/19/23 19:07>
ED Attending Note
Patient seen and examined by attending physician: Yes
ED Attending Note:
Pt is a 68 yr old female with c/o elevated bp despite recent increases in her doses of bp medications, assoc with feeling jittery. No numbness/tingling/fever/focal weakness/visual changes/severe headache/v. On exam here, pt feels 'much better'
without specific complnts. Berry CORBIN d/w cards re:recommendations for bp meds upon d/c for tighter control. Speech clear, no facial droop, maee. Will d/c with medication adjustment and close f/u.
Discharge Plan
Departure
Patient Disposition: Home (Routine Discharge)
Date of Disposition: 07/19/23
Time of Disposition: 18:59
Patient with high blood pressure during this ER visit?: No
Discharge Problem:
Hypertension
Instructions: High Blood Pressure (DC)
Prescriptions:
No Action
tizanidine 4 mg tablet
4 mg PO TID PRN (Reason: muscle spasms)
levothyroxine 25 mcg tablet
25 mcg PO DAILY
simvastatin 20 mg tablet
20 mg PO QPM
lurasidone [Latuda] 20 mg tablet
20 mg PO DAILY
cyanocobalamin (vitamin B-12) 1,000 mcg Tablet
1,000 mcg PO DAILY
mirtazapine 30 mg tablet
30 mg PO HS
Creon 24,000-76,000 -120,000 unit capsule,delayed release(DR/EC)
2 cap PO MEALS
oxycodone-acetaminophen 5-325 mg tablet
1 tab PO Q4HPRN PRN (Reason: severe pain)
Patient Comments:
06/07/2023, pt. filled this med. on 05/27/2023 for 150 tablets according to PDMP.
amlodipine 5 mg Tablet
5 mg PO DAILY
Eliquis 5 mg Tablet
5 mg PO BID
magnesium oxide 250 mg magnesium Tablet
250 mg PO DAILY
cholecalciferol (vitamin D3) [Vitamin D3] 25 mcg (1,000 unit) Tablet
25 mcg PO BID
duloxetine 30 mg Capsule,Delayed Release(Dr/Ec)
30 mg PO DAILY
ferrous sulfate [iron] 325 mg (65 mg iron) Tablet
325 mg PO DAILY
furosemide 20 mg Tablet
20 mg PO DAILY
Hold Instructions: Resume on 06/14/23.
metoprolol succinate 25 mg Tablet Extended Release 24 Hr
25 mg PO BID Qty: 60 0RF
amiodarone 200 mg tablet
200 mg PO DAILY Qty: 1 0RF
Referrals:
Glenn Alfaro MD [Family Provider] -
Cosmo Snow MD [Active] -
Activity Restrictions/Additional Instructions:
As discussed, increase amlodipine to 5 mg twice a day. Continue with metoprolol 25 mg twice a day. Please follow-up with cardiology for further evaluation
Interventions
Interventions:
*Risk Screen - Suicide Last Done: 07/19/23 15:46
*General Assessment Last Done: 07/19/23 15:46
*Neglect/Abuse Screening Last Done: 07/19/23 15:46
ED- Fall Risk Assessment Last Done: 07/19/23 15:46
*ED COVID-19 Vaccine History Last Done: 07/19/23 11:12
ED- Cardiac Assessment Last Done: 07/19/23 15:46
ED- Neurological Assessment Last Done: 07/19/23 15:46
ED- Pulmonary Assessment Last Done: 07/19/23 15:46
Discharge Date and Time
Print Language: COLOMBIAN
[2023-07-19] MEDS: LOPRESSOR 25 MG PO (16:10)
[2023-07-19] MEDS: ZOFRAN 4 MG IV (16:27)
[2023-07-19] MEDS: PERCOCET 5/325 1 TABLET PO (16:40)
[2023-07-19 17:16] LABS: COVID-19 Antigen Negative (Negative)
[2023-07-19 17:18] LABS: Lipase 70 U/L (23-300)
[2023-07-19 17:21] LABS: Troponin I < 0.012 ng/ml
[2023-07-19] MEDS: APRESOLINE 25 MG PO (19:12)
[2023-07-19] MEDS: ZOFRAN ODT (ORALLY DISINTEGRATING) 4 MG PO (19:24)
[2023-07-19 19:30] VITALS: BP 196/117
== END 2023-07-19 19:34 | disposition home or self-care (01) ==
LOC: EMR 11:00
PROVIDERS: Emergency Medicine; Physician Assistant; EMERGENCY PHYSICIAN Emergency Medicine; FAMILY PHYSICIAN Internal Medicine
DX: I10 Essential (primary) hypertension (principal); Z87.891 Personal history of nicotine dependence; Z11.52 Encounter for screening for COVID-19
CPT/HCPCS: 99284; 96374; 80053; 83690; 84484; 85025; 87502; 87811; 93005

== ENCOUNTER → 2024-01-25 11:13 | Outpatient (REF) | payer MEDICARE, SELFPAY ==
[2024-01-25 16:05] LABS: ALT (SGPT) 18 U/L (0-35); AST (SGOT) 33 U/L (14-36); Albumin 4.5 g/dl (3.5-5.0); Alkaline Phosphatase 87 U/L (38-126); Blood Urea Nitrogen 33 mg/dl (7-17); Calcium 10.3 mg/dl (8.4-10.2); Carbon Dioxide 25 mmol/L (22-30); Chloride 96 mmol/L (98-107); Glucose 95 mg/dl (70-99); HDL Cholesterol 98 mg/dl; LDL Cholesterol, Calculated 90 mg/dl; Potassium 4.4 mmol/L (3.5-5.1); Sodium 136 mmol/L (135-145); Total Bilirubin 0.2 mg/dl (0.2-1.3); Total Cholesterol 216 mg/dl (50-199); Total Protein 7.4 g/dl (6.3-8.2); Triglyceride 142 mg/dl (10-149); Very Low Density Lipoprotein 28 mg/dl (0-30); eGFR 40.73
[2024-01-25 16:34] LABS: TSH 2.55 uIU/ml (0.47-4.68)
== END ==
LOC: HWRCS 11:13
PROVIDERS: ATTENDING PHYSICIAN Internal Medicine Cardiovascular Disease; FAMILY PHYSICIAN Internal Medicine
DX: I48.0 Paroxysmal atrial fibrillation (principal); I50.32 Chronic diastolic (congestive) heart failure; I34.0 Nonrheumatic mitral (valve) insufficiency; I47.10 Supraventricular tachycardia, unspecified; I10 Essential (primary) hypertension
CPT/HCPCS: 36415; 71046; 80053; 80061; 83835; 84443; 93306

== ENCOUNTER 2024-08-04 06:57 | Emergency (ER) | payer MEDICARE, SELFPAY ==
[2024-08-04 07:01] VITALS: BP 100/66
[2024-08-04 07:14] VITALS: BMI 23.5
--- NOTE | 2024-08-04 07:23 | ED.GENMED ---
History of Present Illness
<MIMI Young - Last Filed: 08/04/24 09:34>
General
Chief Complaint: DVT/Possible Blood Clot
Source: patient
Exam Limitations: none
Time Seen by Provider: 08/04/24 07:07
Nursing documentation reviewed up to this point in time: agreed with
History of Present Illness
History of Present Illness:
69-year-old female presents to the ER for evaluation. She complains of redness pain and swelling to right leg. She is concerned that she has phlebitis. She denies any injury. She noticed this throughout the night. She did apply heating pad.
Denies any fever or chills. No prior history of DVT PE. Patient does complain of pain and discomfort to the area. She reports she is chronic pain patient normally takes oxycodone for her back and has not taken that today and does complain of pain.
Past History
<MIMI Young - Last Filed: 08/04/24 09:34>
Past History
ED Past Medical History: Arrthythmia (RBBB), COPD, HTN, Hypercholesterolemia, Hypothyroidism, Psychiatric (MDD), Other (Chronic kidney disease, anemia, Takotsubo's cardiomyopathy, chronic pancreatitis, chronic back pain) and Other (Vit D defic)
ED Past Surgical History: Appendectomy, Cardiac (SVT Ablation), Gynecological (Hysterectomy) and Other (lumbar surgery L5-S2; pelvic fx)
Social History
Tobacco: Former smoker
Alcohol: None
Drug: Other
Personal:
Living: with family
Employment: Not employed
Family History
Family History: Other (reviewed and non-contributory)
Review of Systems
<MIMI Young - Last Filed: 08/04/24 09:34>
Review of Systems
Allergies reviewed?: Yes
All Other Systems: ROS reviewed and negative except as documented in HPI and ROS
Constitutional: Reports no symptoms; Denies fever, fatigue or chills
Respiratory: Reports no symptoms
Cardiac: Reports no symptoms
ABD/GI: Reports no symptoms; Denies abdominal pain, nausea, vomiting, diarrhea, bloody stools or black stools
Musculoskeletal: Reports other (right leg pain /redness/swelling )
Skin: Reports other (see above )
Neurological: Reports no symptoms
Psychiatric: Reports no symptoms
Phy Exam
<MIMI Young - Last Filed: 08/04/24 09:34>
General Physical Exam
General Presentation: no apparent distress
General age: appears stated age
General Skin: warm and dry
General Habitus: normal
General Mental: alert
General Hydration: appears well hydrated
Neurological Exam
Neurological Exam: alert and oriented x3
Musculoskeletal Exam
Musculoskeletal Exam: other (rle with strong pulses + erythema to right lower leg, warmth and tenderness )
Skin Exam
Skin Exam: normal color and warm/dry
Psychiatric Exam
Psychiatric Exam: normal mood/affect
Course
<MIMI Young - Last Filed: 08/04/24 09:34>
Orders/Labs/Results
Orders:
Orders
08/04/24 07:13
Venous Doppler Lwr Ext Rt [[facility] Venous LOWER Ext RT] Urgent
Comment:
Reason For Exam: swelling/pain
08/04/24 07:22
IV Insert/Care/Rem.- Treatment PRN
Oxycodone/Acetaminophen [Percocet 5/325] 1 tablet PO NOW STA
08/04/24 07:27
Complete Blood Count/With Diff Urgent
Comprehensive Metabolic Panel Urgent
08/04/24 09:25
Cephalexin Monohydrate [Keflex] 500 mg PO NOW STA
Abnormal Lab Results
08/04/24
07:27
WBC 12.4 H 10^3/uL
(4.8-10.8)
RBC 3.21 L 10^6/uL
(4.20-5.40)
Hgb 9.4 L g/dL
(12.0-16.0)
Hct 28.6 L %
(37.0-47.0)
MCHC 32.9 L g/dL
(33.0-37.0)
Abs Immat Gran (auto) 0.1 H 10^3/uL
(0-0.05)
Absolute Neuts (auto) 8.9 H 10^3/uL
(1.4-6.5)
Absolute Monos (auto) 1.4 H 10^3/uL
(0.1-0.6)
Lymphocytes % 14.2 L %
(20.5-51.1)
Monocytes % 11.1 H %
(1.7-9.3)
Sodium 133 L mmol/L
(135-145)
BUN 33 H mg/dl
(7-17)
Creatinine 1.3 H mg/dL
(0.6-1.0)
Glucose 163 H mg/dl
(70-99)
08/04/24 07:27
08/04/24 07:27
Vital Signs
Initial and Last Documented VS:
Initial Vital Signs
Temp Pulse Resp Pulse Ox
98.9 F 93 18 95
08/04/24 07:00 08/04/24 07:00 08/04/24 07:00 08/04/24 07:00
Last Documented Vital Signs
Temp Pulse Resp BP Pulse Ox
98.9 F 93 18 102/55 97
08/04/24 07:00 08/04/24 07:00 08/04/24 07:00 08/04/24 09:00 08/04/24 09:00
Patrol Supervisor consulted with Physician
Patrol Supervisor consulted with physician?: Yes
Name of Physician Consulted: Marycarmen
<Saturnino Conroy, DO - Last Filed: 08/04/24 16:12>
Orders/Labs/Results
Orders:
Orders
08/04/24 07:13
Venous Doppler Lwr Ext Rt [[facility] Periph Venous LOWER Ext RT] Urgent
Comment:
Reason For Exam: swelling/pain
08/04/24 07:22
IV Insert/Care/Rem.- Treatment PRN
Oxycodone/Acetaminophen [Percocet 5/325] 1 tablet PO NOW STA
08/04/24 07:27
Complete Blood Count/With Diff Urgent
Comprehensive Metabolic Panel Urgent
08/04/24 09:25
Cephalexin Monohydrate [Keflex] 500 mg PO NOW STA
Abnormal Lab Results
08/04/24
07:27
WBC 12.4 H 10^3/uL
(4.8-10.8)
RBC 3.21 L 10^6/uL
(4.20-5.40)
Hgb 9.4 L g/dL
(12.0-16.0)
Hct 28.6 L %
(37.0-47.0)
MCHC 32.9 L g/dL
(33.0-37.0)
Abs Immat Gran (auto) 0.1 H 10^3/uL
(0-0.05)
Absolute Neuts (auto) 8.9 H 10^3/uL
(1.4-6.5)
Absolute Monos (auto) 1.4 H 10^3/uL
(0.1-0.6)
Lymphocytes % 14.2 L %
(20.5-51.1)
Monocytes % 11.1 H %
(1.7-9.3)
Sodium 133 L mmol/L
(135-145)
BUN 33 H mg/dl
(7-17)
Creatinine 1.3 H mg/dL
(0.6-1.0)
Glucose 163 H mg/dl
(70-99)
08/04/24 07:27
08/04/24 07:27
Vital Signs
Initial and Last Documented VS:
Initial Vital Signs
Temp Pulse Resp Pulse Ox
98.9 F 93 18 95
08/04/24 07:00 08/04/24 07:00 08/04/24 07:00 08/04/24 07:00
Last Documented Vital Signs
Temp Pulse Resp BP Pulse Ox
98.9 F 93 18 102/55 97
08/04/24 07:00 08/04/24 07:00 08/04/24 07:00 08/04/24 09:00 08/04/24 09:00
<MIMI Young - Last Filed: 08/04/24 09:34>
MDM/Problems Addressed
Differential Diagnosis Includes:
Not limited to cellulitis, DVT
MDM/Problems Addressed:
Symptoms are consistent with cellulitis. US neg for DVT.
Patient started symptoms last night. Patient denies any fevers and is afebrile white count minimally elevated at 12.4. Patient is well-appearing stable for discharge home with oral antibiotics. I did review with patient close outpatient
follow-up with PCP in the next 2 to 3 days. She is to return if any worsening of symptoms . Incidentally patient's hemoglobin mildly low she denies any weakness or any complaints related to this. Denies any dark or black stools. Patient's renal
function minimally elevated unchanged. Discussed close outpatient follow-up with family doctor for this
<MIMI Young - Last Filed: 08/04/24 09:34>
*Radiology
Radiology exam reviewed: radiology read reviewed
*Pulse Oximetry
Patient hypoxic: no
*Critical Care Note
Total Time (30-74mins, 75-104mins- exclusive of procedures): Not Applicable
ED Attending Note
<MIMI Young - Last Filed: 08/04/24 09:34>
-
Portions of this chart may have been created with voice recognition software.� Occasional wrong word or��sound alike� substitutions may have occurred due to the inherent limitations of voice recognition software.
<Saturnino Conroy DO - Last Filed: 08/04/24 16:12>
ED Attending Note
Patient seen and examined by attending physician: Yes
I performed the substantive portion of visit, reviewed & personally made and approve the management plan that is documented in note by myself or MELVIN.: Yes
ED Attending Note:
I agree with Neena's note
Patient presents with pain, redness right lateral lower extremity. No fever. Symptoms have been present for 4 days.
On exam the patient has significant erythema and some tenderness palpation over the calf particular laterally. There are some excoriated/scabbed areas.
Given patient is not systemically ill I feel it is reasonable to treat with oral antibiotics. Patient can be started on Keflex. She had a negative MRSA swab in February 2022.
Discharge Plan
Departure
Patient Disposition: Home (Routine Discharge)
Date of Disposition: 08/04/24
Time of Disposition: 09:28
Patient with high blood pressure during this ER visit?: No
Condition: Fair
Covid-19: Not Applicable
Discharge Problem:
Cellulitis
Instructions: Cellulitis (Skin Infection), Adult (DC)
Prescriptions:
New
cephalexin 500 mg capsule
500 mg PO Q6H Qty: 40 0RF
No Action
tizanidine 4 mg tablet
4 mg PO Q6HPRN PRN (Reason: muscle spasms)
levothyroxine 25 mcg tablet
25 mcg PO DAILY
simvastatin 20 mg tablet
20 mg PO QPM
lurasidone [Latuda] 20 mg tablet
20 mg PO DAILY
mirtazapine 30 mg tablet
30 mg PO HS
Creon 24,000-76,000 -120,000 unit capsule,delayed release(DR/EC)
2 cap PO MEALS
oxycodone-acetaminophen 5-325 mg tablet
1 tab PO Q4HPRN PRN (Reason: severe pain)
Patient Comments:
06/07/2023, pt. filled this med. on 05/27/2023 for 150 tablets according to PDMP.
amlodipine 5 mg Tablet
5 mg PO DAILY
Eliquis 5 mg Tablet
5 mg PO BID
magnesium oxide 250 mg magnesium Tablet
250 mg PO DAILY
cholecalciferol (vitamin D3) [Vitamin D3] 25 mcg (1,000 unit) Tablet
25 mcg PO DAILY
duloxetine 30 mg Capsule,Delayed Release(Dr/Ec)
30 mg PO DAILY
ferrous sulfate [iron] 325 mg (65 mg iron) Tablet
325 mg PO DAILY
amiodarone 200 mg tablet
200 mg PO DAILY Qty: 1 0RF
metoprolol tartrate 50 mg Tablet
50 mg PO BID
vitamin B complex [B Complex] Capsule
1 cap PO DAILY
Referrals:
Krishna Anand MD [Family Provider] -
Activity Restrictions/Additional Instructions:
As discussed you are given the first dose of antibiotic here in the ER. A prescription was sent to your pharmacy. Take every 6 hours. Follow-up with your family doctor for wound check in the next 2 to 3 days. Return if any worsening of symptoms
of increased pain swelling redness red streaking fever chills.
Also please have your hemoglobin rechecked by your family doctor as it was mildly low at 9.4
Interventions
Interventions:
*Risk Screen - Suicide Last Done: 08/04/24 07:15
*General Assessment Last Done: 08/04/24 07:15
*Neglect/Abuse Screening Last Done: 08/04/24 07:15
*ED- Fall Risk Assessment Last Done: 08/04/24 07:14
*ED COVID-19 Vaccine History Last Done: 08/04/24 07:14
*Nursing Disposition Last Done: 08/04/24 09:56
ED- Cardiac Assessment Last Done: 08/04/24 07:16
ED- Pulmonary Assessment Last Done: 08/04/24 07:16
ED-Peripheral Vascular Assessment Last Done: 08/04/24 07:16
ED-Skin Assessment Last Done: 08/04/24 07:16
Discharge Date and Time
Discharge Date/Time: 08/04/24 09:57
Print Language: SLOVAK
[2024-08-04] MEDS: PERCOCET 5/325 1 TABLET PO (07:31)
[2024-08-04 07:35] LABS: % Basophils 0.5 % (0-2); % Immature Granulocytes 0.4 % (0-0.5); % Lymphocytes 14.2 % (20.5-51.1); % Monocytes 11.1 % (1.7-9.3); % Neutrophils 71.8 % (42.2-75.2); Absolute Basophils 0.1 10^3/uL (0-0.2); Absolute Eosinophils 0.3 10^3/uL (0-0.7); Absolute Immature Granulocytes 0.1 10^3/uL (0-0.05); Absolute Lymphocytes 1.8 10^3/uL (1.2-3.4); Absolute Monocytes 1.4 10^3/uL (0.1-0.6); Absolute Neutrophils 8.9 10^3/uL (1.4-6.5); Hematocrit 28.6 % (37.0-47.0); Hemoglobin 9.4 g/dL (12.0-16.0); Mean Corp Hgb Conc. 32.9 g/dL (33.0-37.0); Mean Corpuscular Hgb 29.3 pg (27.0-31.0); Mean Corpuscular Volume 89.1 fL (81.0-99.0); Mean Platelet Volume 10.2 fL (7.4-10.4); Nucleated Red Blood Cells % 0 %; Platelet Count 388 10^3/uL (130-400); Red Blood Cell Count 3.21 10^6/uL (4.20-5.40); Red Cell Dist. Width 13.7 % (11.5-14.5); White Blood Cell Count 12.4 10^3/uL (4.8-10.8)
[2024-08-04 07:39] VITALS: BP 98/66
[2024-08-04 07:59] LABS: ALT (SGPT) 11 U/L (0-35); AST (SGOT) 20 U/L (14-36); Albumin 3.6 g/dl (3.5-5.0); Alkaline Phosphatase 108 U/L (38-126); Blood Urea Nitrogen 33 mg/dl (7-17); Calcium 9.7 mg/dl (8.4-10.2); Carbon Dioxide 23 mmol/L (22-30); Chloride 98 mmol/L (98-107); Estimated Creatinine Clearance 32 ml/min; Glucose 163 mg/dl (70-99); Potassium 4.5 mmol/L (3.5-5.1); Sodium 133 mmol/L (135-145); Total Bilirubin 0.6 mg/dl (0.2-1.3); Total Protein 6.6 g/dl (6.3-8.2); eGFR 44.24
[2024-08-04 08:27] VITALS: BP 100/61
[2024-08-04 09:00] VITALS: BP 102/55
[2024-08-04] MEDS: KEFLEX 500 MG PO (09:36)
== END 2024-08-04 09:57 | disposition home or self-care (01) ==
LOC: EMR 06:57
PROVIDERS: Nurse Practitioner; EMERGENCY PHYSICIAN Emergency Medicine; FAMILY PHYSICIAN Family Medicine
DX: L03.113 Cellulitis of right upper limb (principal); Z87.891 Personal history of nicotine dependence
CPT/HCPCS: 99284; 80053; 85025; 93971

== ENCOUNTER → 2024-08-15 07:32 | Outpatient (REF) | payer MEDICARE, SELFPAY ==
[2024-08-15 09:24] LABS: Blood Urea Nitrogen 37 mg/dl (7-17); Carbon Dioxide 28 mmol/L (22-30); Chloride 96 mmol/L (98-107); Glucose 94 mg/dl (70-99); Potassium 4.9 mmol/L (3.5-5.1); Sodium 137 mmol/L (135-145); eGFR 28.06
== END ==
LOC: HWLAB 07:32
PROVIDERS: ATTENDING PHYSICIAN Student in an Organized Health Care Education/Training Program
DX: N18.9 Chronic kidney disease, unspecified (principal)
CPT/HCPCS: 36415; 80048

== ENCOUNTER → 2024-08-24 11:15 | Outpatient (REF) | payer MEDICARE, SELFPAY ==
[2024-08-24 16:51] LABS: Blood Urea Nitrogen 31 mg/dl (7-17); Calcium 9.8 mg/dl (8.4-10.2); Carbon Dioxide 31 mmol/L (22-30); Chloride 98 mmol/L (98-107); Glucose 92 mg/dl (70-99); Potassium 4.8 mmol/L (3.5-5.1); Sodium 138 mmol/L (135-145); eGFR 40.47
== END ==
LOC: HWLAB 11:15
PROVIDERS: ATTENDING PHYSICIAN Student in an Organized Health Care Education/Training Program
DX: R79.89 Other specified abnormal findings of blood chemistry (principal)
CPT/HCPCS: 36415; 80048

== ENCOUNTER → 2024-10-16 09:05 | Outpatient (REF) | payer MEDICARE, SELFPAY ==
[2024-10-16 12:07] LABS: ALT (SGPT) 15 U/L (0-35); AST (SGOT) 23 U/L (14-36); Albumin 4.5 g/dl (3.5-5.0); Alkaline Phosphatase 117 U/L (38-126); Blood Urea Nitrogen 37 mg/dl (7-17); Carbon Dioxide 26 mmol/L (22-30); Chloride 103 mmol/L (98-107); Glucose 92 mg/dl (70-99); HDL Cholesterol 64 mg/dl; LDL Cholesterol, Calculated 71 mg/dl; Potassium 5.1 mmol/L (3.5-5.1); Sodium 139 mmol/L (135-145); Total Bilirubin 0.4 mg/dl (0.2-1.3); Total Cholesterol 159 mg/dl (50-199); Total Protein 7.8 g/dl (6.3-8.2); Triglyceride 122 mg/dl (10-149); Very Low Density Lipoprotein 24 mg/dl (0-30); eGFR 34.48
[2024-10-16 14:38] LABS: NT-proBNP 1410 pg/ml
== END ==
LOC: HWRAD 09:05
PROVIDERS: ATTENDING PHYSICIAN Internal Medicine Cardiovascular Disease; FAMILY PHYSICIAN Student in an Organized Health Care Education/Training Program
DX: I10 Essential (primary) hypertension (principal); E78.00 Pure hypercholesterolemia, unspecified; I48.0 Paroxysmal atrial fibrillation
CPT/HCPCS: 36415; 71046; 80053; 80061; 83880; 84443

== ENCOUNTER → 2024-11-13 10:47 | Outpatient (REF) | payer MEDICARE, SELFPAY ==
[2024-11-13 13:02] LABS: Blood Urea Nitrogen 34 mg/dl (7-17); Calcium 9.5 mg/dl (8.4-10.2); Carbon Dioxide 27 mmol/L (22-30); Chloride 99 mmol/L (98-107); Glucose 98 mg/dl (70-99); Potassium 4.7 mmol/L (3.5-5.1); Sodium 136 mmol/L (135-145); eGFR 37.26
== END ==
LOC: HWLAB 10:47
PROVIDERS: ATTENDING PHYSICIAN Internal Medicine Cardiovascular Disease; FAMILY PHYSICIAN Student in an Organized Health Care Education/Training Program
DX: I10 Essential (primary) hypertension (principal)
CPT/HCPCS: 36415; 80048